=== PATIENT | female | born 1955 | race Caucasian/White ===

== ENCOUNTER 2018-07-09 06:31 | Inpatient (IN) ==
[2018-06-30 12:21] LABS: Basophils # (Auto) 0 K/mcL (0.0-0.3); Basophils % (Auto) 0.4 % (0.0-2.0); Eosinophils # (Auto) 0.3 K/mcL (0.0-0.7); Eosinophils % (Auto) 2.4 % (0.0-7.0); Granulocytes % (Auto) 50.8 % (38.0-78.0); Lymphocytes # (Auto) 4.2 K/mcL (1.5-4.8); Lymphocytes % (Auto) 38.1 % (15.5-49.0); Mean Cell Volume 86.5 fL (80.0-100.0); Mean Corpuscular HGB Conc 32.5 g/dL (31.0-36.0); Monocytes # (Auto) 0.9 K/mcL (0.1-0.9); Monocytes % (Auto) 8.3 % (1.0-12.0); Platelet Count 373 K/mcL (140-440); RBC 4.95 M/mcL (4.00-5.20); Red Cell Distribution Width 14.5 % (11.5-14.5)
[2018-06-30 12:31] LABS: Appearance,Urine CLEAR; Bacteria,Urine 0 /hpf (0); Bilirubin,Urine NEG (NEG); Color,Urine STRAW; Glucose,Urine (UA) NEGATIVE (NEG); Leukocyte Esterase,Urine NEG /uL (NEG); Mucus,Urine FEW /hpf (0); Protein,Urine NEG (NEG); Specific Gravity,Urine 1.006 (1.000-1.035); Urine Blood 0.03 mg/dL (<0.03); Urine RBC < 1 /hpf (0-1); Urine Squamous Epithelial Cell 1 /hpf (0-4); Urine Transitional Epi Cells < 1 /hpf (0-2); Urine WBC < 1 /hpf (0-4); Urobilinogen,Urine NEG (NEG)
[2018-06-30 12:39] LABS: Blood Urea Nitrogen 13 mg/dl (8-23)
[2018-06-30 13:47] LABS: Estimated Average Glucose(eAG) 111 mg/dL; Hemoglobin A1C 5.5 % HGB (4.0-6.0)
[2018-07-09] MEDS ORDERED: CELECOXIB 200 MG CAPSULE PO SCH (07:00)
[2018-07-09] MEDS ORDERED: oxyCODONE 10 MG TAB.ER.12H PO SCH (07:00)
[2018-07-09] MEDS ORDERED: PREGABALIN 75 MG CAPSULE PO SCH (07:00)
[2018-07-09] MEDS ORDERED: ceFAZolin 1 GM VIAL IV SCH (07:00)
[2018-07-09] MEDS ORDERED: PROPOFOL 200 MG/20 ML VIAL IV ONE (09:35)
[2018-07-09] MEDS ORDERED: MIDAZOLAM 5 MG/5 ML VIAL IV ONE (09:35)
[2018-07-09] MEDS ORDERED: TRANEXAMIC ACID 1,000 MG/10 ML VIAL IV ONE ×2 (09:35→11:01)
[2018-07-09] MEDS ORDERED: fentaNYL 250 MCG/5 ML VIAL IV ONE (09:35)
[2018-07-09] MEDS ORDERED: PHENYLEPHRINE 10 MG/ML VIAL IV ONE (09:35)
[2018-07-09] MEDS ORDERED: LIDOCAINE HCL/PF 100 MG/5 ML SYRINGE IV ONE (09:35)
[2018-07-09] MEDS ORDERED: DEXAMETHASONE 10 MG/ML VIAL IV ONE (09:35)
[2018-07-09] MEDS ORDERED: SUCCINYLCHOLINE 20 MG/ML ML IV ONE (09:35)
[2018-07-09] MEDS ORDERED: ONDANSETRON 4 MG/2 ML VIAL IV ONE (09:35)
[2018-07-09] MEDS ORDERED: MEPERIDINE 25 MG/ML SYRINGE IV PRN (10:32)
[2018-07-09] MEDS ORDERED: ATROPINE SULFATE 0.4 MG/ML VIAL IV PRN (10:32)
[2018-07-09] MEDS ORDERED: METHOCARBAMOL 1,000 MG/10 ML VIAL IV PRN (10:32)
[2018-07-09] MEDS ORDERED: FLUMAZENIL 0.1 MG/ML ML IV PRN (10:32)
[2018-07-09] MEDS ORDERED: NALOXONE HCL 0.4 MG/ML VIAL IV PRN (10:32)
[2018-07-09] MEDS ORDERED: METOPROLOL TARTRATE 5 MG/5 ML VIAL IV PRN (10:32)
[2018-07-09] MEDS ORDERED: ONDANSETRON 4 MG/2 ML VIAL IV PRN ×2 (10:32→11:01)
[2018-07-09] MEDS ORDERED: IPRATROPIUM/ALBUTEROL 3 ML AMPUL.NEB NEB PRN (10:32)
[2018-07-09] MEDS ORDERED: ACETAMINOPHEN 1,000 MG/100 ML BOTTLE IV ONE (10:32)
[2018-07-09] MEDS ORDERED: diphenhydrAMINE 50 MG/ML VIAL IV PRN (10:32)
[2018-07-09] MEDS ORDERED: ePHEDrine 50 MG/ML AMPUL IV PRN (10:32)
[2018-07-09] MEDS ORDERED: PROMETHAZINE 25 MG/ML VIAL IV PRN (10:32)
[2018-07-09] MEDS ORDERED: BUPIVACAINE W/EPI 0.5% 50 ML VIAL IJ ONE (10:34)
[2018-07-09] MEDS ORDERED: LACTATED RINGERS 1,000 ML IV SCH (10:45)
[2018-07-09] MEDS ORDERED: FLEETS ADULT ENEMA PR PRN (11:01)
[2018-07-09] MEDS ORDERED: BISACODYL 10 MG SUPP.RECT PR PRN (11:01)
[2018-07-09] MEDS ORDERED: BENZOCAINE/MENTHOL 1 LOZENGE PO PRN (11:01)
[2018-07-09] MEDS ORDERED: KETOROLAC 30 MG/ML VIAL IV PRN (11:01)
[2018-07-09] MEDS ORDERED: POLYETHYLENE GLYCOL 3350 17 GM PACKET PO PRN (11:01)
[2018-07-09] MEDS ORDERED: MAGNESIUM HYDROXIDE 30 ML ORAL.SUSP PO PRN (11:01)
[2018-07-09] MEDS ORDERED: HYDROmorphone 2 MG/ML VIAL IV PRN (11:01)
--- NOTE | 2018-07-09 11:01 | Brief Operative Note ---
Date of procedure: 07/09/18 Pre-op diagnosis: Right shoulder severe OA Post-op diagnosis: same Procedure: 1)Right total shoulder arthroplasty 2)Biceps tenodesis Grafts/Implants: Yes (Tornier aequalis resurfacing head 48x18, small 35 glenoid) Anesthesia: GETA Findings: severe arthritis Complications: none Surgeon: Davion Sargent Wet Washer Machine: Damian Gupta Estimated blood loss (cc): 150 Specimens Removed/Pathology: none sent Condition: stable Disposition: PACU
[2018-07-09] MEDS ORDERED: ACYCLOVIR 400 MG TABLET PO PRN (11:05)
[2018-07-09] MEDS ORDERED: DOXYCYCLINE HYCLATE 50 MG CAPSULE PO PRN (11:05)
[2018-07-09] MEDS ORDERED: ALBUTEROL SULFATE 1 PUFF INHALER INH PRN (11:05)
[2018-07-09] MEDS ORDERED: CYCLOBENZAPRINE 10 MG TABLET PO PRN (11:05)
[2018-07-09] MEDS: fentaNYL 100 MCG/2 ML VIAL IV PRN ×7 (11:30→12:18)
[2018-07-09] MEDS: HYDROmorphone 2 MG/ML VIAL IV PRN ×3 (11:47→12:19)
--- NOTE | 2018-07-09 12:57 | XRay Report ---
CLINICAL INFORMATION: Post-OP Total Shoulder COMPARISON: None. FINDINGS: Shoulder prosthesis is anatomically aligned. No osseous abnormality. Soft tissue swelling seen in the expected IMPRESSION: Negative Interpreted and Authenticated by: Mitch Grider 07/09/18
[2018-07-09] MEDS: 0.9 % SODIUM CHLORIDE 10 ML SYRINGE IV SCH ×2 (13:17→20:17)
[2018-07-09] MEDS: 0.9 % SODIUM CHLORIDE 1,000 ML IV SCH ×2 (13:17→20:17)
[2018-07-09] MEDS: HYDROcodone/APAP 10/325MG TABLET PO PRN ×2 (14:26→20:13)
--- NOTE | 2018-07-09 15:50 | Operative Note ---
DATE OF OPERATION: 07/09/2018 PREOPERATIVE DIAGNOSIS: Right shoulder severe osteoarthritis. POSTOPERATIVE DIAGNOSIS: Right shoulder severe osteoarthritis. PROCEDURE PERFORMED: 1. Right total shoulder arthroplasty placing the Tornier Aequalis Resurfacing 48 x 16 humeral component, a small 35 glenoid component. 2. Biceps tenodesis. SURGEON: Davion Sargent M.D. DELIVERY TABLE FEEDER: Nick Gupta PA-C. ANESTHESIA: General. DRAINS: None. SPECIMENS: None. COMPLICATIONS: None. BLOOD LOSS: 150 mL. POSTOPERATIVE CONDITION: Stable. INDICATIONS FOR SURGERY: This is a 63-year-old female who has had longstanding progressive worsening severe right shoulder pain. Radiographs showed severe [id number] osteoarthritis with large humeral head osteophyte. FINDINGS AT SURGERY: As above. Post implantation showed satisfactory component position and stability. PROCEDURE IN DETAIL: The patient had been seen preoperatively. Informed consent had been obtained after discussion of risks and benefits of surgery. Risks including, but not limited to, bleeding, possibly requiring transfusion; infection, possibly requiring implant removal and prolonged IV antibiotics; injury to nerves, blood vessels, and other surrounding structures; anesthetic risks; incomplete or no resolution of symptoms; stiffness; pain; weakness; dislocation; and possibility of needing further revision surgery. She understood these risks and wished to proceed. Correct operative site was marked and then patient was taken to the operating room. General anesthesia was induced. The patient was carefully positioned in the beach chair position and pressure points carefully padded. Right shoulder and upper extremity were then carefully prepped and draped in normal sterile fashion, and a time-out was performed verifying patient name, operative site, and plan. Ioban was used to cover all skin surfaces and a standard deltopectoral incision was made starting about the coracoid and extending distal laterally. The scalpel was used through skin and subcutaneous tissue and hemostasis obtained with Bovie cautery. Careful blunt dissection was taken down onto the deltopectoral interval and the cephalic vein was identified. Irrisept was irrigated and then we carefully bluntly dissected medial to the vein bluntly and then used blunt finger dissection to develop the subdeltoid space. Ramos deltoid retractor was placed and then the lateral edge of the conjoined tendon was identified and a blue handle retractor placed underneath. The biceps was identified exiting from underneath the pectoralis, and this was unroofed along its course. We then amputated this off the glenoid with a curved Torres scissors. A large curved osteotome was used then to perform a lesser tuberosity osteotomy to detach our subscapularis. We then subsequently dislocated the humeral head out anteriorly and released capsule around the inferior margin. She had very large inferior humeral head osteophyte, and this was removed with curved osteotome. Once we had debrided this down, we sized this to what appeared to be a 48 mm size. We then subluxed the humeral head posteriorly with a Fukuda retractor and began exposing the glenoid. We used a Bovie to remove the biceps stump and labrum circumferentially. We carefully released capsule around the inferior glenoid with a metal tip sucker to gently retract while we used the Bovie directly on bone. After doing capsule releases, we were able to get adequate visualization to prepare the glenoid. The center was identified and then a guide pin placed. Prior to placing this pin, however, we did determine radius of curvature at 35. We then reamed with the small reamer and then used the ZAOZAO wiper to prepare superior and inferior bone. A central peg hole was reamed and then the peripheral peg guide placed and the three peripheral peg holes drilled. The anterior inferior peg hole did come out through bone as she did have a very small glenoid. We then opened a small 35 glenoid component. DBX was placed in the flutes of the central peg. We then mixed QVPNuy quick-setting cement and irrigated with Irrisept, after a minute pulse lavaged with saline, and then injected the three peripheral peg holes with cement and pressurized with finger pressurization. We then impacted the glenoid component and held firm pressure until cement had fully hardened. We did a check for excess cement and then the humeral head was subluxed anteriorly again. We used a guide to place our pin central in the head and then used the 48 x 16 resurfacing reamer. We reamed down to cancellous bone circumferentially and then cruciate punch used to prep, and the trial was placed to verify full seating. We then opened the definitive implant. We irrigated the head with Irrisept, after a minute copiously pulse lavaged with saline, and then the implant was impacted onto the head. We checked our stability, and it subluxed posteriorly 50%. We then made two holes in the bicipital groove, and a #2 FiberWire was passed through these holes and around the lesser tuberosity in a ipbvso-uw-gylqy stitch to repair our subscapularis. We then also placed several ihlbxa-kf-whach FiberWire stitches proximal in the rotator interval. Our traction stitch was passed through her biceps and then passed through bone and tied to tenodese the biceps. The proximal stump was amputated and discarded. We did one more Irrisept irrigation, after a minute pulse lavaged, and #1 Vicryl stitch was used to run the deltopectoral interval. Final Irrisept irrigation done, after a minute final pulse lavage, and then 2-0 Monocryl for subcutaneous and milagros for skin. Xeroform and sterile dressing were applied. Arm was placed in an abductor immobilizer. The patient was awakened, extubated, and transferred to recovery in stable condition. BJB:dimas Job ID: [id number] Doc ID: [id number] Davion Sargent MD
[2018-07-09] MEDS: ceFAZolin 1 GM VIAL IV SCH (17:40)
[2018-07-09] MEDS: DOCUSATE SODIUM 100 MG CAPSULE PO SCH (20:13)
[2018-07-09] MEDS ORDERED: SENNOSIDES 1 TABLET PO SCH (21:00)
[2018-07-10] MEDS: ceFAZolin 1 GM VIAL IV SCH (00:36)
[2018-07-10] MEDS: 0.9 % SODIUM CHLORIDE 10 ML SYRINGE IV SCH ×2 (01:46→05:10)
[2018-07-10] MEDS: HYDROcodone/APAP 10/325MG TABLET PO PRN ×2 (05:26→11:59)
[2018-07-10] MEDS: 0.9 % SODIUM CHLORIDE 1,000 ML IV SCH (06:06)
[2018-07-10] MEDS ORDERED: LEVOTHYROXINE 125 MCG TABLET PO SCH (07:30)
--- NOTE | 2018-07-10 07:46 | Discharge Summary ---
Providers - Providers Patient information: Note initiated : 07/10/18 at 7:44 am Service Date, if different from initiated Date: [] Patient: Sheron Gregory 63 y/o F admitted on 07/09/18 for Right Total Shoulder Arthroplasty with Bicep. Chief Complaint: [] Discharge date: 07/10/18 Hospitalization Hospital course: Pt was admitted for a R Total shoulder arthroplasty. Pt admitted on day of procedure. Was transferred to the floor for IV pain meds, IV abx, and PT. Pt spent one night on the floor prior to discharge to home. Will f/u at [facility] in 2 weeks. Discharge diagnosis: R shoulder OA Exam - Exam Clean and dry: Yes Weight bearing status: none Ortho Discharge - TSA - Patient Instructions Diet: Regular Diet Activity: non weight bearing Total Shoulder Protocol: Leave immobilizer in place except for bathing and ROM. Abduction pillow. Continue to wear sling until seen by physician. Codman Pendulum : These exercises use momentum produced by your body to move your shoulder joint. Bend your knees and shift your weight to your front leg, then back, allowing your arm to swing in the same directions. Using the same technique, alternately shift your weight between your right and left legs, allowing your arm to swing from side to side. These exercises are also performed in counterclockwise and clockwise circular motions. Typically these exercises are performed several times per day, for a set number repetitions or minutes, such as 20 times in a row or 5 minutes at a time. Dressing Care: May shower in 2 days - Follow Up Plan Follow Up Appointments: Damian Gupta PA-C [Physician Tugboat Mate] - 07/24/18 9:20 am Disposition: Home, Self-Care Prognosis: Good Rehab Potential: Good Overall status at discharge: patient is back to baseline - Orders For Discharge Prescriptions: HYDROcodone/APAP 10/325MG [[place] 10-325Mg] 1 - 2 tab PO Q4HP PRN #75 tab PRN Reason: Pain Level 3-6 Pending Studies Resuscitation Status Full Code Diet Regular Diet Start SatJul 09 1102 Hydrocodone Bitart/Acetaminophen ([place] 10/325mg) 0 tab PO Q4HP PRN PRN Reason: PAIN LEVEL 3-6 Last Admin: 07/10/18 05:26 Dose: 1 tab Documented by: Admin: 07/09/18 20:13 Dose: 1 tab Documented by: CHRISTIEOSSERT Admin: 07/09/18 14:26 Dose: 1 tab Documented by: [facility] Docusate Sodium (Colace) 100 mg PO BID [facility] Last Admin: 07/09/18 20:13 Dose: 100 mg Documented by: CHRISTIEOSSERT Hydromorphone HCl (Dilaudid) 0 mg IV Q2HP PRN PRN Reason: PAIN LEVEL > 6 Last Admin: 07/09/18 16:39 Dose: 1 mg Documented by: [facility] Sodium Chloride (Sodium Chloride 0.9%) 1,000 mls @ 100 mls/hr IV .Q10H [facility] Last Admin: 07/10/18 06:06 Dose: Not Given Documented by: Infusion: 07/10/18 01:49 Dose: 0 mls/hr Documented by: CHRISTIEOSSERT Admin: 07/09/18 20:17 Dose: Not Given Documented by: CHRISTIEOSSERT Admin: 07/09/18 13:17 Dose: 100 mls/hr Documented by: [facility] Ketorolac Tromethamine (Toradol) 30 mg IV Q6HP PRN PRN Reason: Pain Stop: 07/11/18 11:04 Last Admin: 07/09/18 13:06 Dose: 30 mg Documented by: [facility] Levothyroxine Sodium (Synthroid) 125 mcg PO QAMAC [facility] Last Admin: 07/10/18 07:29 Dose: 125 mcg Documented by: [facility] Senna (Senokot) 2 tab PO HS [facility] Last Admin: 07/09/18 20:13 Dose: 2 tab Documented by: ALEJA Sodium Chloride (Saline Flush) 10 ml IV Q8 [facility] Last Admin: 07/10/18 05:10 Dose: Not Given Documented by: HCRISTIEOSSERT Admin: 07/10/18 01:46 Dose: 10 ml Documented by: CHRISTIEOSSERT Admin: 07/09/18 20:17 Dose: Not Given Documented by: CHRISTIEOSSERT Admin: 07/09/18 13:17 Dose: Not Given Documented by: [facility] Shift Summary 07/10/18 02:47 Shift Summary by Yadira Nixon AOx4. VSS on RA. Immoblizer in place to KANG. Dressing CDI. Denies numbness or tingling. Pulses intact. [place] x1 for minimal pain. L hand PIV SL with adequate oral intake. Voiding without issue. IS bedside. Foot pumps on. Currently resting in bed without complaint. Initialized on 07/10/18 02:47 - END OF NOTE
[2018-07-10] MEDS: DOCUSATE SODIUM 100 MG CAPSULE PO SCH (08:49)
[2018-07-10] MEDS ORDERED: LOSARTAN/HCTZ 100/25 TABLET PO SCH (09:00)
[2018-07-10] MEDS ORDERED: BECLOMETHASONE DIPROPIONATE 40MCG INHALER INH SCH (09:00)
[2018-07-10] MEDS ORDERED: LOSARTAN 50 MG TABLET PO SCH (09:00)
[2018-07-10] MEDS ORDERED: HYDROCHLOROTHIAZIDE 25 MG TABLET PO SCH (09:00)
[2018-07-10] MEDS ORDERED: MULTIVIT,THER IRON,CA,FA & MIN 1 TABLET PO SCH (09:00)
== END 2018-07-10 13:10 | disposition home or self-care (01) | DRG 483 ==
LOC: MEDSUR 06:31
PROVIDERS: ADMIT Orthopaedic Surgery; ATTEND Orthopaedic Surgery

== ENCOUNTER 2018-09-01 19:39 | Inpatient (IN) ==
[2018-09-01] MEDS ORDERED: DIPH,PERTUSS(ACELL),TET VAC/PF 0.5 ML SYRINGE IM ONE (19:49)
[2018-09-01] MEDS ORDERED: RABIES VACC, HUMAN DIPLOID/PF 2.5 UNIT VIAL IM ONE (20:19)
[2018-09-01] MEDS ORDERED: RABIES IMMUNE GLOBULIN 300 UNIT/2 ML VIAL SQ ONE (20:30)
[2018-09-01] MEDS ORDERED: cefTRIAXone 1 GM VIAL IV ONE (20:33)
[2018-09-01] MEDS ORDERED: ONDANSETRON 4 MG/2 ML VIAL IV ONE (20:33)
[2018-09-01] MEDS ORDERED: HYDROmorphone 2 MG/ML VIAL IV SCH (20:45)
[2018-09-01] MEDS ORDERED: VANCOMYCIN 1,000 MG in 0.9 % SODIUM CHLORIDE 250 ML IV ONE (21:08)
[2018-09-01] MEDS ORDERED: PIPERACILLIN SODIUM/TAZOBACTAM 3.375 GM in DEXTROSE 5% IN WATER 50 ML IV ONE (21:08)
--- NOTE | 2018-09-01 21:28 | Emergency Department Note ---
Animal Bite HPI - General Chief Complaint: Animal Bite Stated Complaint: raccon bites and scratches Time Seen by Provider: 09/01/18 19:49 Source: patient Mode of arrival: ambulatory Limitations: no limitations - History of Present Illness HPI Narrative: 63-year-old female presents with multiple lacerations to the upper and lower extremities after a raccoon attack. She states that her dog was barking at a raccoon and she went to go get him away and the raccoon bit her leg. When it bit her leg she fell to the ground and then it started just attacking her everywhere. She has multiple lacerations to the legs as well as the upper extremities which seem to be the worst occluding the fingers. Arrives completely covered in blood. Her was able to kill the raccoon and has at home and will take it to the health department first thing tomorrow morning. This did happen in [place]. We did attempt to call the health department and could not get in contact with anybody. It is unknown why the raccoon was so aggressive and would not get off of her. Unknown last tetanus. No treatments prior to arrival. She does have for throughout the lacerations with multiple avulsed nails in addition to her lacerations. - Related Data Home Medications Medication Instructions Recorded Confirmed acyclovir 400 mg tablet 400 mg PO DAILYP PRN tab 10/17/17 07/09/18 albuterol sulfate HFA 90 2 puff INHALATION Q4-6HP PRN g 10/17/17 07/09/18 mcg/actuation aerosol inhaler beclomethasone dipropionate 80 1 puff INHALATION DAILY g 10/17/17 07/09/18 mcg/actuation aerosol inhaler cyclobenzaprine 10 mg tablet 10 mg PO DAILYP PRN tab 10/17/17 07/09/18 doxycycline hyclate 50 mg tablet 50 mg PO DAILYP PRN 10/17/17 07/09/18 levothyroxine 125 mcg tablet 125 mcg PO QAMAC 10/17/17 07/09/18 losartan 100 1 tab PO QDAY 10/17/17 07/09/18 mg-hydrochlorothiazide 25 mg tablet Multivit,Ther Iron,Ca,FA & Min 1 tab PO DAILY 06/30/18 07/09/18 [Multivitamin W/Minerals] Previous Rx's Medication Instructions Recorded HYDROcodone/APAP 10/325MG [[place] 1 - 2 tab PO Q4HP PRN #75 tab 07/10/18 10-325Mg] Allergies Allergy/AdvReac Type Severity Reaction Status Date / Time No Known Drug Allergies Allergy Verified 06/30/18 10:35 Review of Systems All systems ED: reviewed and negative except as stated. Past Medical History - Past Medical History Medical history: Reports: COPD, coronary artery disease, hypertension Surgical history ED: Reports: appendectomy, tonsillectomy, other (knee) - Social History smoking status: Never smoker Alcohol use: Reports: Rarely Drug use: Reports: none Physical Exam Limitations: no limitations General appearance: alert, other (Appears in pain, covered in blood with lacerations to the upper extremities visible on her arrival.) Head: atraumatic, normocephalic, normal inspection Eye: Present: normal appearance. Absent: conjunctival injection ENT: mucous membranes moist Neck: Present: normal inspection, trachea midline. Absent: tenderness, lymphadenopathy Chest: Present: symmetric chest wall rise Respiratory: Present: normal lung sounds bilaterally. Absent: respiratory distress, rales/crackles, wheezes, accessory muscle use Cardiovascular: Present: tachycardia, normal heart sounds Extremities: Absent: normal inspection (Full range of motion intact to all extremities and sensation intact since. Please see pictures in the chart for all documentation of lacerations to the upper and lower extremities. There is no lacerations to the trunk, face, head, or neck.) Skin: Present: warm, dry. Absent: intact (Multiple lacerations to the forearms bilaterally, hands bilaterally, lower legs bilaterally. Please see pictures for documentation.) Course Course Narrative: Wounds are flushed with copious amounts of saline and chlorhexidine. tetanus updated, antibiotics started. Rabies vaccine and IGG given. Case discussed with Dr. Major, plastics. States ok to leave the open or closed if needed. minimal bleeding since her arrival. Case discussed with Dr. santos (infectious disease) who suggests wounds be left open if any way possible, start vancomycin and Zosyn, update tetanus, give Rabies vaccine (for 5 days due to high risk) and rabies IGG (inject into deepest sites and closest to head/brain). [address] Moreno, hospitalist for admission to obs and Dr. Santos to see in the morning. Vital Signs Temperature 96.6 F L 03/25/19 19:40 Pulse Rate 119 H 09/01/18 19:40 Respiratory Rate 18 09/01/18 19:40 Blood Pressure 126/83 09/01/18 19:40 Pulse Oximetry (%) 96 09/01/18 19:40 Temperature 96.6 F L 09/01/18 19:40 Pulse Rate 135 H 09/01/18 21:15 Respiratory Rate 20 09/01/18 21:15 Blood Pressure 126/83 09/01/18 19:40 Pulse Oximetry (%) 98 09/01/18 21:15 Disposition Pt seen by PASTRY DECORATOR/PA only: No Clinical Impression: Bite by animal, Raccoon bite, Multiple lacerations Disposition: Xfer As Outpt/Obs ([facility]) Condition: Fair Referrals: Sabrina Ozuna MD [Primary Care Provider] - Davion Santos MD [Physician] - Time of Disposition: 21:40
[2018-09-01] MEDS: HYDROmorphone 2 MG/ML VIAL IV PRN ×2 (21:46→22:47)
--- NOTE | 2018-09-01 22:05 | Internal Med History&Physical ---
Medical - H&P: [facility] Patient information: Note initiated : 09/01/18 at 10:01 pm Service Date, if different from initiated Date: [] Patient: Sheron Gregory a 63 y/o F admitted on for raccon bites and scratches. Chief Complaint: [] History of present illness: Ms. Gregory is a 63 year old F who presents to the ED after being attacked by raccoon. Patient states that she heard her dog barking outside in the back she went to the back and found a raccoon and the dog growling in the raccoon. She L that the dog to get in the house and the dog ran away. At that point the raccoon right after her and as she turned around run away the raccoon grabbed her leg. Patient fell down the ground and put her arms up to protect herself in the raccoon's started biting and calling her arms. Finally the raccoon to stopped and ran away. was able to kill the raccoon so we could taken to the health department. In the ED patient received tetanus shot as well as the rabies immunoglobulin. Case was discussed with Dr. Elizalde RN and Dr. Santos who recommended admitting the patient for observation started on Vanco mycin Zosyn. Patient has pain to the laceration sites and some nausea but has no other complaints otherwise. Review of Systems: Pertinent positives as above. Denies headache/fever/chills/vomiting/chest or abdominal pain/cough/dyspnea/diarrhea. Remaining 10 point review of system review negative Medical - H&P: PMH Medical history: Medical History (Last Reviewed 10/22/17 @ 11:01 by Harpal Aaron PA-C) Thyroid disease (Chronic) Joint pain (Chronic) Hyperlipidemia (Chronic) Hypertension, essential (Chronic) COPD (chronic obstructive pulmonary disease) (Chronic) Acid reflux (Chronic) Past Surgical History (Last Reviewed 10/22/17 @ 11:01 by Harpal Aaron PA-C) H/O colonoscopy (Chronic) Right shoulder arthroplasty, tonsillectomy, Appendectomy Family History (Last Reviewed 10/22/17 @ 11:01 by Harpal Aaron PA-C) Father Cancer Brother Heart attack Social History (Last Updated 10/22/17 @ 11:03 by Harpal Aaron PA-C) Patient exposed to secondhand smoke Rare alcohol Lives with family Medical - H&P: Meds Home Medications Medication Instructions Recorded Confirmed Type acyclovir 400 mg tablet 400 mg PO DAILYP PRN tab 10/17/17 07/09/18 History albuterol sulfate HFA 90 2 puff INHALATION Q4-6HP PRN g 10/17/17 07/09/18 History mcg/actuation aerosol inhaler beclomethasone dipropionate 80 1 puff INHALATION DAILY g 10/17/17 07/09/18 History mcg/actuation aerosol inhaler cyclobenzaprine 10 mg tablet 10 mg PO DAILYP PRN tab 10/17/17 07/09/18 History doxycycline hyclate 50 mg tablet 50 mg PO DAILYP PRN 10/17/17 07/09/18 History levothyroxine 125 mcg tablet 125 mcg PO QAMAC 10/17/17 07/09/18 History losartan 100 1 tab PO QDAY 10/17/17 07/09/18 History mg-hydrochlorothiazide 25 mg tablet Multivit,Ther Iron,Ca,FA & Min 1 tab PO DAILY 06/30/18 07/09/18 History [Multivitamin W/Minerals] HYDROcodone/APAP 10/325MG [[place] 1 - 2 tab PO Q4HP PRN #75 tab 07/10/18 Rx 10-325Mg] Allergies Allergy/AdvReac Type Severity Reaction Status Date / Time No Known Drug Allergies Allergy Verified 06/30/18 10:35 Medical - H&P: Exam - Constitutional Vitals: Temp Pulse Resp BP Pulse Ox 96.6 F L 97 H 20 91/66 95 09/01/18 19:40 09/01/18 21:32 09/01/18 21:15 09/01/18 21:32 09/01/18 21:32 Exam: General: Alert, Awake, No acute Distress Eyes/N/T: EOMI, PEERL, Head/Neck: neck supple, normocephalic atraumatic CV: RRR, No murmurs, normal s1/s2 Pulm: Clear b/l, no wheezing/rhonchi/rales Abd: soft, nontender, +BS x4 Ext: Multiple lacerations, 20+ primarily to the upper extremities but also to the lower extremities Neuro: Alert, no focal deficits, moves all extremities, CN 2-12 grossly intact, symmetrical strength b/l upper/lower, sensations intact b/l upper/lower Skin: warm/dry Medical - H&P: A/P - Narrative A/P Narrative: A: *Lacerations, Multiple to b/l UE's & LE's: 2/2 to attack by raccoon *COPD: *HTN: *Hypothyroidism: * P: -Wound care -Vanco/Zosyn -ID consult -Dr. Major consulted -Rabies immunoglobulin and tetanus given -Rabies vaccine - -ppx: SCD
[2018-09-01] MEDS: RABIES IMMUNE GLOBULIN 300 UNIT/2 ML VIAL SQ ONE (22:49)
[2018-09-01] MEDS ORDERED: ACETAMINOPHEN 325 MG TABLET PO PRN (23:10)
[2018-09-01] MEDS: 0.9 % SODIUM CHLORIDE 1,000 ML IV SCH (23:20)
[2018-09-01] MEDS ORDERED: HYDROcodone/APAP 5/325MG TABLET PO ONE (23:52)
[2018-09-01] MEDS: HYDROcodone/APAP 5/325MG TABLET PO PRN (23:55)
[2018-09-02] MEDS: PIPERACILLIN SODIUM/TAZOBACTAM 3.375 GM in DEXTROSE 5% IN WATER 50 ML IV SCH ×5 (01:00→18:55)
[2018-09-02] MEDS ORDERED: HYDROcodone/APAP 5/325MG TABLET PO ONE (03:33)
[2018-09-02] MEDS: 0.9 % SODIUM CHLORIDE 1,000 ML IV SCH (03:38)
[2018-09-02] MEDS: 0.9 % SODIUM CHLORIDE 10 ML SYRINGE IV SCH ×3 (06:07→21:01)
[2018-09-02] MEDS ORDERED: VANCOMYCIN PER PHARMACY IV SCH (06:30)
[2018-09-02] MEDS ORDERED: CYCLOBENZAPRINE 10 MG TABLET PO PRN (07:04)
[2018-09-02] MEDS ORDERED: ALBUTER INH PRN (07:04)
[2018-09-02] MEDS ORDERED: ACYCLOVIR 400 MG TABLET PO PRN (07:04)
--- NOTE | 2018-09-02 07:07 | Internal Med Progress Note ---
Medical - PN: Subj Patient information: Note initiated : 09/02/18 at 7:05 am Service Date, if different from initiated Date: [] Patient: Sheron Gregory a 63 y/o F admitted on 09/01/18 for raccon bites and scratches. Chief Complaint: [] Interval history: Ms. Gregory is a 63 year old F who presents to the ED after being attacked by raccoon. Patient states that she heard her dog barking outside in the back she went to the back and found a raccoon and the dog growling in the raccoon. She L that the dog to get in the house and the dog ran away. At that point the raccoon right after her and as she turned around run away the raccoon grabbed her leg. Patient fell down the ground and put her arms up to protect herself in the raccoon's started biting and calling her arms. Finally the raccoon to stopped and ran away. was able to kill the raccoon so we could taken to the health department. In the ED patient received tetanus shot as well as the rabies immunoglobulin. Case was discussed with Dr. Boyds RN and Dr. Santos who recommended admitting the patient for observation started on Vanco mycin Zosyn. Patient has pain to the laceration sites and some nausea but has no other complaints otherwise. 09/02 Slept okay when pain was controlled. Has some occasional nausea. Dressings intact. No headache fever chills vomiting chest pain stomach pain. Friend family and friends present in the room. Review of Systems: denies headache/fever/chills/vomiting/chest or abdominal pain/cough/dyspnea/di arrhea. Otherwise see above. - Constitutional Vitals: Vital Signs Temp Pulse Resp BP Pulse Ox 97.5 F 107 H 20 100/62 95 09/02/18 03:38 09/02/18 03:38 09/02/18 03:38 09/02/18 03:38 09/02/18 03:38 Period Temp Pulse Resp BP Sys/Chandra Pulse Ox Last 24 Hr 96.6 F-97.5 F 90-135 18-20 91-126/62-83 94-98 Intake and Output 09/01/18 09/02/18 09/02/18 21:59 05:59 13:59 Intake Total 230 Balance 230 Weight 97.522 kg 97.522 kg Intake & Output: Intake & Output 09/01/18 09/02/18 09/02/18 21:59 05:59 13:59 Intake Total 230 Balance 230 Weight 97.522 kg 97.522 kg Intake: IV 50 Zosyn 3.375 gm In Dextrose 5% 50 in Water 50 ml @ 100 mls/hr IV ONCE ONE Rx#:[id number] Oral 180 Other: # Voids 1 Exam: General: Alert, Awake, No acute Distress Eyes/N/T: EOMI, Head/Neck: neck supple, CV: RRR, No murmurs, Pulm: Clear b/l, no wheezing/rhonchi/rales Abd: soft, nontender, +BS x4 Ext: Multiple lacerations, 20+ primarily to the upper extremities but also to the lower extremities, dressings intact Neuro: Alert, no focal deficits, moves all extremities, Skin: warm/dry Medical - PN: Obj Da - Labs CBC & Chem 7: 09/02/18 04:56 09/02/18 04:56 Meds: Medications Acetaminophen (Tylenol) 650 mg PO Q6HP PRN PRN Reason: PAIN/FEVER > 101 Hydrocodone Bitart/Acetaminophen ([place] 5/325mg) 1 - 2 tab PO Q4HP PRN PRN Reason: PAIN LEVEL 3-6 Last Admin: 09/01/18 23:55 Dose: 2 tab Documented by: Sodium Chloride (Sodium Chloride 0.9%) 1,000 mls @ 100 mls/hr IV .Q10H [place] Stop: 09/02/18 09:09 Last Admin: 09/02/18 03:38 Dose: 100 mls/hr Documented by: Piperacillin Sod/Tazobactam (Sod 3.375 gm/ Dextrose) 50 mls @ 100 mls/hr IV Q6H [place]; Protocol Last Admin: 09/02/18 06:08 Dose: Not Given Documented by: Vancomycin HCl 1,000 mg/ (Sodium Chloride) 250 mls @ 250 mls/hr IV Q12H [place] Morphine Sulfate (Morphine) 2 mg IV Q4HP PRN PRN Reason: PAIN LEVEL > 6 Last Admin: 09/02/18 01:24 Dose: 2 mg Documented by: Sodium Chloride (Saline Flush) 10 ml IV Q8 [place] Last Admin: 09/02/18 06:07 Dose: Not Given Documented by: Vancomycin HCl (Vancomycin Per Pharmacy) 1 order IV UD [place]; Protocol Medical - PN: A/P - Time Spent With Patient Total time spent is greater than 50% in coordination of care (as documented) at patient's floor/unit and/or counseling patient: - Narrative A/P Narrative: A: *Lacerations, Multiple to b/l UE's & LE's: 2/2 to attack by raccoon *COPD: *HTN: *Hypothyroidism: *Hyponatremia: P: -Wound care -Vanco/Zosyn -ID consult -Dr. Major consulted -Rabies immunoglobulin and tetanus given -Rabies vaccine -NS IVF -ppx: [facility] Medical - PN: Qual - VTE Deep Vein Thrombosis/Pulmonary Embolism Present on Admission: No
[2018-09-02 07:25] LABS: ALT/SGPT 22 U/l (0-40); Albumin 3.6 gm/dL (3.2-5.2); Albumin/Globulin Ratio 1.6 (1.0-2.3); Alkaline Phosphatase 81 U/L (39-117); Bilirubin,Direct < 0.2 mg/dL (0.0-0.3); Blood Urea Nitrogen 16 mg/dl (8-23); Gamma Glutamyl Transpeptidase 31 U/L (5-36); Uric Acid 6.6 mg/dL (2.5-8.0)
[2018-09-02] MEDS ORDERED: LOSARTAN/HCTZ 100/25 TABLET PO SCH (09:00)
[2018-09-02] MEDS: HYDROcodone/APAP 5/325MG TABLET PO PRN ×4 (09:08→21:03)
[2018-09-02] MEDS: VANCOMYCIN 1,000 MG in 0.9 % SODIUM CHLORIDE 250 ML IV SCH ×2 (09:10→21:01)
[2018-09-02] MEDS: BECLOMETHASONE DIPROPIONATE INH SCH (09:11)
[2018-09-02 09:22] LABS: Basophils # (Auto) 0 K/mcL (0.0-0.3); Basophils % (Auto) 0.2 % (0.0-2.0); Eosinophils # (Auto) 0 K/mcL (0.0-0.7); Eosinophils % (Auto) 0.1 % (0.0-7.0); Granulocytes % (Auto) 83.2 % (38.0-78.0); Lymphocytes % (Auto) 11.4 % (15.5-49.0); Mean Cell Volume 87.6 fL (80.0-100.0); Mean Corpuscular HGB Conc 32.9 g/dL (31.0-36.0); Monocytes # (Auto) 1.4 K/mcL (0.1-0.9); Monocytes % (Auto) 5.1 % (1.0-12.0); Platelet Count 387 K/mcL (140-440); RBC 3.64 M/mcL (4.00-5.20); Red Cell Distribution Width 15.4 % (11.5-14.5)
[2018-09-02] MEDS: LEVOTHYROXINE 125 MCG TABLET PO SCH (11:51)
[2018-09-02] MEDS: HYDROCHLOROTHIAZIDE 25 MG TABLET PO SCH (11:51)
[2018-09-02] MEDS: LOSARTAN 50 MG TABLET PO SCH (11:51)
--- NOTE | 2018-09-02 15:58 | Infectious Disease Consult ---
History of Present Illness Patient information: Note initiated : 09/02/18 at 3:49 pm Service Date, if different from initiated Date: [] Patient: Sheron Gregory 63 y/o F admitted on 09/02/18 for raccon bites and scratches. Chief Complaint: [] Consult date: 09/02/18 Requesting Physician: Camilo Moreno Reason for Consult: Multiple bite wounds from a raccoon bite Chief complaint: I was attacked by a raccoon History of present illness: 63 year old lady was admitted through ED yesterday night after presenting there wiith multiple bite wounds. Pt was unprovokedly attacked and bitten by a raccoon yesterday evening. She had bites over her both hands, forearms, both legs with some deep and some superficial. Her rescued her and was able to kill the raccoon so that it could be taken to the health department. In the ED, pt had HR 119, BP 126/83, RR 18, O2 sats 96%. She recieved first aid with washing all the wounds with soap and water. I was called late last evening about the pt and shared instructions about using a viricidal agent to clean all the wounds thoroughly, avoiding suturing the wound unless necessary for hemostasis and if so, do loosely. Pt was given HRIG in and around the wounds that were deepest and close to brain. She was given 1st dose of Rabies post- exposure prophylaxis and started on IV Vanc and IV Zosyn. Pt has been afebrile since admission. At time of visit today, she denied any fever, chills, n/v, diarrhea. Endorsed pain in multiple wounds of upper and lower extremities. Discussed the risks of bites, likelihood of rabies, infection; and possible ways forward [antibiotics, wound care, plastic surgery]. Review of Systems All systems PM: reviewed and no additional remarkable complaints except as stated Past History Past medical history: Hx of dog bite few years ago. As dog was a pet, and vaccinated for rabies, pt didnot recieve any Rabies shots Past surgical history: Rt shoulder replacement Past family history: no Hx of bites by raccoon in family Medications and Allergies Home Medications Medication Instructions Recorded Confirmed Type acyclovir 400 mg tablet 400 mg PO DAILYP PRN tab 10/17/17 09/01/18 History albuterol sulfate HFA 90 2 puff INHALATION Q4-6HP PRN g 10/17/17 09/01/18 History mcg/actuation aerosol inhaler beclomethasone dipropionate 80 1 puff INHALATION DAILY g 10/17/17 09/01/18 History mcg/actuation aerosol inhaler cyclobenzaprine 10 mg tablet 10 mg PO DAILYP PRN tab 10/17/17 09/01/18 History doxycycline hyclate 50 mg tablet 50 mg PO DAILYP PRN 10/17/17 09/01/18 History levothyroxine 125 mcg tablet 125 mcg PO QAMAC 10/17/17 09/01/18 History losartan 100 1 tab PO QDAY 10/17/17 09/01/18 History mg-hydrochlorothiazide 25 mg tablet Multivit,Ther Iron,Ca,FA & Min 1 tab PO DAILY 06/30/18 09/01/18 History [Multivitamin W/Minerals] HYDROcodone/APAP 10/325MG [[place] 1 - 2 tab PO Q4HP PRN #75 tab 07/10/18 09/01/18 Rx 10-325Mg] Allergies Allergy/AdvReac Type Severity Reaction Status Date / Time No Known Drug Allergies Allergy Verified 06/30/18 10:35 Physical Examination Vital signs: Temp Pulse Resp BP Pulse Ox 36.2 C 109 H 20 131/75 95 09/02/18 08:00 09/02/18 08:00 09/02/18 08:00 09/02/18 08:00 09/02/18 08:00 General appearance: no acute distress Eyes pulmonary: nonicteric ENT: other (no thrush) Auscultation: bilateral: clear Cardiovascular: regular rate and rhythm Gastrointestinal: normoactive bowel sounds, soft, non-tender Integumentary: other (multiple bite wounds on both forearms, hands, legs ranging from puncture wounds in skin to deeper wounds with inv of subcutaneous tissue and fat. Express blood on pressure.No visible bone or tendon. No pus drainage.) Extremities: other (swelling of hands, forearm, legs. No discoloration to suggest necrosis) Results - Laboratory Findings CBC and BMP: 09/03/18 05:08 09/03/18 05:08 Abnormal lab findings: Abnormal Labs 09/02/18 09/02/18 04:56 08:15 WBC 26.5 H RBC 3.64 L Hgb 10.5 L Hct 31.9 L RDW 15.4 H Gran % 83.2 H Lymph % (Auto) 11.4 L Gran # 22.0 H [place] # (Auto) 1.4 H Sodium 130 L Carbon Dioxide 16 L Anion Gap 17.0 H Glucose 107 H Calcium 8.2 L Phosphorus 4.8 H Assessment and Plan - Narrative A/P Narrative: A: 1. Multiple bite wounds of upper and lower extremities from an unprovoked raccoon bite on 09/02/18 - I am concerned about multiple bite wounds as follows: a. multiple bite wounds (about 25) make it difficult for administration of HRIG in each single wound as the amount calculated after weight based dosing was 10 ml. In this case it was given in the wounds which were closer to head and deeper (stage 3 per WHO) b. many of the wounds in hands and fingers are close to tendon sheaths and raise concerns for introduction of bacteria into muscle and bones, with possibility of tenosynovitis and osteomyelitis 2. No concerns for sepsis at this time Recommendations: - Continue IV Vancomycin per pharmacy assisted dosing - Continue IV Zosyn 3.375 gm q6 hrs - send 2 sets of blood Cx - Discussed with Dr. Major (plastic surgery) about selective debridement of wounds, and exploration of those with deeper involvement and those involving fingers and hand - Continue rabies post-exposure prophylaxis on following dates: day 3 09/04/18 day 7 09/08/18 day 14 09/15/18 day 28 09/29/18 - will pursue imaging of hands, forearm and legs to r/o deeper infections. A CT of hands, forearms and legs would be appropriate. - will switch to highly bioavailable oral therapy at discharge. Pt will need rat exterminator antibiotics will follow Davion Santos MD Infectious diseases
[2018-09-02] MEDS: BACITRACIN TOPICAL OINT 15 GM TUBE TOPICAL SCH ×2 (16:06→21:01)
--- NOTE | 2018-09-02 16:11 | General Surgery Consult Note ---
History of Present Illness Patient information: Note initiated : 09/02/18 at 4:06 pm Service Date, if different from initiated Date: [] Patient: Sheron Gregory 63 y/o F admitted on 09/02/18 for raccon bites and scratches. Chief Complaint: [] Consult date: 09/02/18 Requesting physician: Camilo Moreno (wound management) History of present illness: I saw this lady along with Dr. Santos and Randee RN, inpatient wound care nurse, in room 109 at [facility]. 63 years female. Admitted via emergency room. Patient gives history of being bitten by a cone over both the upper extremities and lower legs in an unprovoked attack. The animal was scheduled by her and taken to healthcare Department. Patient was treated in the ER, the wounds were cleansed, tetanus toxoid and immune globulin was given. She is admitted to the hospital for further ongoing management. Wound care was called to assist with the evaluation and treatment. Medications and Allergies Home Medications Medication Instructions Recorded Confirmed Type acyclovir 400 mg tablet 400 mg PO DAILYP PRN tab 10/17/17 09/08/18 History albuterol sulfate HFA 90 2 puff INHALATION Q4-6HP PRN g 10/17/17 09/08/18 History mcg/actuation aerosol inhaler beclomethasone dipropionate 80 1 puff INHALATION DAILY g 10/17/17 09/08/18 History mcg/actuation aerosol inhaler cyclobenzaprine 10 mg tablet 10 mg PO DAILYP PRN tab 10/17/17 09/08/18 History doxycycline hyclate 50 mg tablet 50 mg PO DAILYP PRN 10/17/17 09/08/18 History levothyroxine 125 mcg tablet 125 mcg PO QAMAC 10/17/17 09/08/18 History losartan 100 1 tab PO QDAY 10/17/17 09/08/18 History mg-hydrochlorothiazide 25 mg tablet RX: Multivit,Ther Iron,Ca,FA & Min 1 tab PO DAILY 06/30/18 09/08/18 History [Multivitamin W/Minerals] RX: Amoxicillin/Potassium Clav 875 mg PO BIDCC #26 tab 09/04/18 09/08/18 Rx [Augmentin] RX: Bacitracin Topical Oint 1 dose TOPICAL UD PRN #1 tube 09/04/18 09/08/18 Rx RX: Doxycycline Hyclate 100 mg PO BID #26 tablet.orl 09/04/18 09/08/18 Rx RX: HYDROcodone/APAP 5/325MG 1 - 2 tab PO Q4HP PRN #40 tab 09/04/18 09/08/18 Rx [[place] 5-325Mg] Allergies Allergy/AdvReac Type Severity Reaction Status Date / Time No Known Drug Allergies Allergy Verified 09/08/18 16:13 Exam Temp Pulse Resp BP Pulse Ox 98.2 F 86 16 131/75 98 09/02/18 12:00 09/02/18 12:00 09/02/18 12:00 09/02/18 08:00 09/02/18 12:00 - General physical appearance well developed, well nourished, no distress - Eyes PERRL, normal ocular movement - ENT normal pinna, normal mucosa, no congestion - Head Head exam IM: Present: atraumatic, normal inspection, normocephalic - Neck no masses, no bruits, trachea midline, no venous distension - Cardiovascular Cardiovascular exam IM: Present: normal rate and rhythm - Respiratory normal expansion, normal respiratory effort, clear to auscultation - Abdomen Abdomen: Present: soft, non tender, bowel sounds - Integumentary Present: other (multiple scattered wounds extending through the skin and subcutaneous tissue of both forearms and legs. These are thoroughly washed and currently there is no purulence, odor, crepitation or drainage.) - Neurologic Present: other (No focal neurologic deficits. Patient denies any dysphagia, hydro-phobia or photophobia.) - Musculoskeletal Present: normal gait, normal posture - Psychiatric Present: oriented to time, oriented to person, oriented to place, speech is normal, memory intact, other (situational anxiety.) Results - Labs 09/04/18 05:05 09/04/18 05:05 Abnormal lab results 09/02/18 09/02/18 Range/Units 04:56 08:15 WBC 26.5 H (4.5-11.0) K/mcL RBC 3.64 L (4.00-5.20) M/mcL Hgb 10.5 L (12.0-15.0) g/dL Hct 31.9 L (36.0-48.0) % RDW 15.4 H (11.5-14.5) % Gran % 83.2 H (38.0-78.0) % Lymph % (Auto) 11.4 L (15.5-49.0) % Gran # 22.0 H (1.8-8.0) K/mcL [place] # (Auto) 1.4 H (0.1-0.9) K/mcL Sodium 130 L (133-145) mmol/L Carbon Dioxide 16 L (22-30) mmol/L Anion Gap 17.0 H (8-16) Glucose 107 H (70-105) mg/dL Calcium 8.2 L (8.6-10.4) mg/dl Phosphorus 4.8 H (2.7-4.5) mg/dL Diabetes panel 09/02/18 Range/Units 04:56 Sodium 130 L (133-145) mmol/L Potassium 4.5 (3.3-5.1) mmol/L Chloride 97 (96-108) mmol/L Carbon Dioxide 16 L (22-30) mmol/L BUN 16 (8-23) mg/dl Creatinine 0.7 (0.6-1.1) mg/dl Glucose 107 H (70-105) mg/dL Calcium 8.2 L (8.6-10.4) mg/dl AST 22 (0-37) U/l ALT 22 (0-40) U/l Alkaline Phosphatase 81 (39-117) U/L Total Protein 5.9 (5.9-8.4) gm/dL Albumin 3.6 (3.2-5.2) gm/dL Triglycerides 62 (<150) mg/dl Calcium panel 09/02/18 Range/Units 04:56 Calcium 8.2 L (8.6-10.4) mg/dl Phosphorus 4.8 H (2.7-4.5) mg/dL Albumin 3.6 (3.2-5.2) gm/dL Pituitary panel 09/02/18 Range/Units 04:56 Sodium 130 L (133-145) mmol/L Potassium 4.5 (3.3-5.1) mmol/L Chloride 97 (96-108) mmol/L Carbon Dioxide 16 L (22-30) mmol/L BUN 16 (8-23) mg/dl Creatinine 0.7 (0.6-1.1) mg/dl Glucose 107 H (70-105) mg/dL Calcium 8.2 L (8.6-10.4) mg/dl Adrenal panel 09/02/18 Range/Units 04:56 Sodium 130 L (133-145) mmol/L Potassium 4.5 (3.3-5.1) mmol/L Chloride 97 (96-108) mmol/L Carbon Dioxide 16 L (22-30) mmol/L BUN 16 (8-23) mg/dl Creatinine 0.7 (0.6-1.1) mg/dl Glucose 107 H (70-105) mg/dL Calcium 8.2 L (8.6-10.4) mg/dl Total Bilirubin 0.4 (0.0-1.0) mg/dL AST 22 (0-37) U/l ALT 22 (0-40) U/l Alkaline Phosphatase 81 (39-117) U/L Total Protein 5.9 (5.9-8.4) gm/dL Albumin 3.6 (3.2-5.2) gm/dL All other labs normal. Assessment and Plan (1) Raccoon bite Assessment: Patient seen with Dr. Santos and Randee child care worker nurse. Plan: Wound care and Treatment Plan discussed with nursing staff and patient at length. F/U at [facility] in ONE week after discharge. Status: Acute Priority: Medium (2) Multiple lacerations Same as above. Status: Acute Priority: Medium
[2018-09-03] MEDS: HYDROcodone/APAP 5/325MG TABLET PO PRN ×7 (00:17→23:59)
[2018-09-03] MEDS: PIPERACILLIN SODIUM/TAZOBACTAM 3.375 GM in DEXTROSE 5% IN WATER 50 ML IV SCH ×5 (00:17→23:59)
[2018-09-03] MEDS ORDERED: BACITRACIN TOPICAL OINT 15 GM TUBE TOPICAL PRN (02:26)
--- NOTE | 2018-09-03 05:47 | XRay Report ---
CLINICAL INFORMATION: Animal bites TECHNIQUE: PA, oblique, lateral left hand COMPARISON: None. FINDINGS: No left hand fracture. No radiopaque foreign body. No soft tissue gas. There is degenerative joint disease involving the proximal and distal interphalangeal joints. No acute posttraumatic abnormality. IMPRESSION: 1. Degenerative joint disease 2. No fracture. No soft tissue gas or radiopaque foreign body Interpreted and Authenticated by: Mitch Dutta 09/03/18
[2018-09-03] MEDS: 0.9 % SODIUM CHLORIDE 10 ML SYRINGE IV SCH ×3 (05:50→20:10)
[2018-09-03] MEDS: LEVOTHYROXINE 125 MCG TABLET PO SCH (06:55)
[2018-09-03 07:03] LABS: Basophils # (Auto) 0.1 K/mcL (0.0-0.3); Basophils % (Auto) 0.3 % (0.0-2.0); Eosinophils # (Auto) 0.2 K/mcL (0.0-0.7); Eosinophils % (Auto) 0.9 % (0.0-7.0); Granulocytes % (Auto) 66.2 % (38.0-78.0); Lymphocytes # (Auto) 4.3 K/mcL (1.5-4.8); Mean Cell Volume 87.5 fL (80.0-100.0); Mean Corpuscular HGB Conc 32.5 g/dL (31.0-36.0); Monocytes # (Auto) 1.6 K/mcL (0.1-0.9); Monocytes % (Auto) 8.6 % (1.0-12.0); Platelet Count 272 K/mcL (140-440); RBC 3.06 M/mcL (4.00-5.20); Red Cell Distribution Width 15.6 % (11.5-14.5)
[2018-09-03 07:19] LABS: ALT/SGPT 19 U/l (0-40); Albumin 3.1 gm/dL (3.2-5.2); Albumin/Globulin Ratio 1.3 (1.0-2.3); Alkaline Phosphatase 71 U/L (39-117); Bilirubin,Direct < 0.2 mg/dL (0.0-0.3); Blood Urea Nitrogen 11 mg/dl (8-23); Gamma Glutamyl Transpeptidase 30 U/L (5-36); Uric Acid 3.9 mg/dL (2.5-8.0)
--- NOTE | 2018-09-03 07:49 | Consultation ---
DATE OF CONSULTATION: 09/02/2018 REASON FOR CONSULTATION: Multiple laceration on both upper extremities and both legs after a raccoon attacked her and bit her. HISTORY OF PRESENT ILLNESS: Mrs. Gregory is a 63-year-old relatively healthy female, who was attacked by a raccoon at her home last night and her dogs were barking and she called the dogs away and went out to investigate, and raccoon became angry and aggressive, attacked her, she ran, it dragged her down and bit her on both of her legs and both her hands and arms when she tried to protect her face. The raccoon was scared off and eventually killed by her , but she was brought into the emergency room last evening. She had multiple lacerations. There was some uncertainty as to whether or not it should be left open or closed. I was asked to see her today in consultation. MEDICATIONS: The patient takes acyclovir, albuterol, betamethasone inhaler, cyclobenzaprine, doxycycline, levothyroxine, losartan, multivitamins, and hydrocodone as she has had recent surgery. ALLERGIES: SHE HAS NO KNOWN DRUG ALLERGIES. PAST MEDICAL HISTORY: The patient has a history of hypothyroidism, hypertension, acid reflux. PAST SURGICAL HISTORY: She just had a surgery on her right shoulder a couple of months ago. She is still having some weakness and problems with it. She had a history of a tonsillectomy and appendectomy. SOCIAL HISTORY: She does not smoke and never has. Alcohol intake is rare. [place] is [place] She lists her employer as [employer] in [place]. FAMILY HISTORY AND REVIEW OF SYSTEMS: Not obtained. PHYSICAL EXAMINATION: GENERAL: The patient is awake, alert, tired, and appropriate. She is in obvious discomfort as she has multiple wounds, but she is cooperative. VITAL SIGNS: She is currently afebrile. Temperature is 98.1, her blood pressure is 108/68, heart rate is 80 and regular, respirations are 16. HEAD AND NECK. Demonstrates pleasant symmetric facial features with no significant lesions of concern. There are no open wounds or lacerations. She has good facial symmetry. NECK: Supple. LUNGS: Clear bilaterally without wheezes. HEART: Demonstrates a regular rhythm without murmur. EXTREMITIES AND NEUROLOGIC: Exam demonstrated multiple cuts, abrasions, some deep, some superficial. Some of the deeper wounds are on the left hypothenar palm measuring about 4 cm. Multiple parallel deeper lacerations on the left upper inner forearm and arm. She has multiple wounds on the outside of the upper arm, but these are more of a puncture wound in nature. She has some small lacerations on her fingers, and the long finger nail is hanging from the soft tissue that has been partially avulsed. That part was remarkably painful and tender. When I have her flex and extend her fingers, she is able to flex and extend all the digits on the right hand. She has no pain with passive or resisted extension and flexion. On the left hand, however, she does have some multiple deeper lacerations, but all of them are fairly short on the left index finger; however, she has pain with attempted motion, both flexion and extension. There is laceration directly over the PIP. Capillary refill is excellent. Sensation is normal in all digits. In looking at her lower extremities, on her left posterior calf, she has somewhat deeper puncture narciso, but they are not deep lacerations. On the right lower extremity on the dorsal aspect of the distal leg and foot, there is a jagged laceration measuring about 3 cm in total and one on the posterior calf measuring about 2.5 cm in total. She is able to wiggle her toes and move her ankles. Sensation in her foot is essentially normal. IMPRESSION: A 63-year-old female with a fairly complex problem with multiple both deep and superficial lacerations, on both upper extremities and both lower extremities. She also has possible tendon injury, possible early tenosynovitis on the left index finger. She was admitted for IV antibiotics, local wound care. I had a long discussion with the patient and the family regarding treatment. I told them that given these bites, there is always an increased risk of getting a wound infection. If we locally anesthetize the deeper wounds, scrub them out with a surgical scrub and Betadine, fastened the edges as best as possible and reapproximate them, there is a slight increased risk of wound infection; but even if it is a 20% chance of wound infection, there is an 80%, perhaps 90%, chance that the wounds will heal. Closing the wounds will expedite the healing and reduce the scarring and reduce long-term complications with those wounds. The patient and family were given chance to ask questions and they agree with the plan. I ended up going to my office for a few hours and when I came back, we went ahead and cleaned up and closed the wounds. The wounds on upper arms and forearms were addressed first. The left index finger was also addressed and all these areas were anesthetized first with lidocaine with bicarbonate and then lidocaine with epinephrine in a 1:200,000 dilution. These wounds were all thoroughly scrubbed, prepped, and draped out sterilely. On the left arm, about 6 cm of wounds were closed with interrupted and mattress sutures of 4-0 nylon. On the right palm, a 4 cm laceration and on the right upper arm, a total of about 14 cm of lacerations were closed with horizontal mattress and simple sutures of 4-0 nylon as well. The left index finger was then opened. The wound was extended proximally and distally, and the wounds were carefully inspected. The extensor tendon was visualized directly and demonstrated evidence of dorsal injury, but it did not appear to be through and through. I clearly did not transect the tendon. I looked carefully and I did not see any evidence of penetration into the PIP joint itself. This wound was nonetheless irrigated out with Betadine irrigation, scrubbed, and then loosely closed with interrupted sutures of 4-0 nylon. Finally, additional local anesthesia was used to block the tip of the long finger and the right long finger nail which was partially avulsed off, was removed, and there appeared to be some avulsion on just the part of the nail plate, but there was no evidence of bony exposure or bone involvement. The proximal nail under the nail fold was intact, so that nail should continue to grow normally. Having been content with the closure and the treatment of all the upper extremity wounds, the wounds were dressed with bacitracin, 4 x 4's, and Kerlix. The lower extremity wounds were then addressed both on the left posterior capsule, they were more like punctures and so no sutures were necessary. The other 2 areas on the dorsum of the foot and on the posterior calf were anesthetized, scrubbed, fashioned, and trimmed all obvious nonviable and questionable viable skin, and these defects were closed with horizontal mattress, half buried dermal, and simple sutures of 4-0 nylon. Again, the posterior calf on the right side was about a 2.5 cm closure and the right foot was about a 3 cm closure. These wounds were all washed free of debris and dressed as the other wounds were. The patient tolerated the procedure well, and there were no complications. I told her that again this increase risk that she could get infections, but if the wounds heal uneventfully, she will have better scarring of left hand in long-term unless problems with those areas. The most area of concern is that of a left index finger. If she continues to have worsening pain and swelling, a formal exploration and irrigation of the joint may be necessary. I will plan to check her again tomorrow. Discussed my findings with Dr. Moreno and patient tolerated the procedure well. JOSÉ MANUEL:sammy Job ID: [id number] Doc ID: [id number] Jason Moreno DO
--- NOTE | 2018-09-03 08:11 | Internal Med Progress Note ---
Medical - PN: Subj Patient information: Note initiated : 09/03/18 at 8:08 am Service Date, if different from initiated Date: [] Patient: Sheron Gregory a 63 y/o F admitted on 09/02/18 for raccon bites and scratches. Chief Complaint: [] Interval history: Ms. Gregory is a 63 year old F who presents to the ED after being attacked by raccoon. Patient states that she heard her dog barking outside in the back she went to the back and found a raccoon and the dog growling in the raccoon. She L that the dog to get in the house and the dog ran away. At that point the raccoon right after her and as she turned around run away the raccoon grabbed her leg. Patient fell down the ground and put her arms up to protect herself in the raccoon's started biting and calling her arms. Finally the raccoon to stopped and ran away. was able to kill the raccoon so we could taken to the health department. In the ED patient received tetanus shot as well as the rabies immunoglobulin. Case was discussed with Dr. Boyds RN and Dr. Santos who recommended admitting the patient for observation started on Vanco mycin Zosyn. Patient has pain to the laceration sites and some nausea but has no other complaints otherwise. 09/02 Slept okay when pain was controlled. Has some occasional nausea. Dressings intact. No headache fever chills vomiting chest pain stomach pain. Friend family and friends present in the room. 09/03 No issues overnight. Slept okay. Has not had a bowel movement. Pain controlled with pain regimen. Review of Systems: denies headache/fever/chills/vomiting/chest or abdominal pain/cough/d yspnea/diarrhea. Otherwise see above. - Constitutional Vitals: Vital Signs Temp Pulse Resp BP Pulse Ox 97.8 F 96 H 16 128/71 98 09/03/18 04:42 09/03/18 07:03 09/03/18 04:42 09/03/18 04:42 09/03/18 04:42 Period Temp Pulse Resp BP Sys/Chandra Pulse Ox Last 24 Hr 97.6 F-99.4 F 86-108 16-16 107-128/58-71 93-98 Intake and Output 09/02/18 09/03/18 09/03/18 21:59 05:59 13:59 Intake Total 1050 570 50 Output Total 300 Balance 750 570 50 Weight 97.522 kg Intake & Output: Intake & Output 09/02/18 09/03/18 09/03/18 21:59 05:59 13:59 Intake Total 1050 570 50 Output Total 300 Balance 750 570 50 Weight 97.522 kg Intake: IV 1050 300 50 Zosyn 3.375 gm In Dextrose 5% 50 50 50 in Water 50 ml @ 100 mls/hr IV Q6H [facility] Rx#:[id number] Vancomycin 1,000 mg In Sodium 250 Chloride 0.9% 250 ml @ 250 mls/ hr IV Q12H [facility] Rx#:[id number] Oral 270 Output: Void Amount 300 Other: Meal Dinner Percent of Meal Consumed 50% Feeding Ability Independent Urine Appearance Clear Urine Color Bright Yellow Urine Odor Normal # Voids 1 1 Exam: General: Alert, Awake, No acute Distress Eyes/N/T: EOMI, Head/Neck: neck supple, CV: RRR, No murmurs, Pulm: Clear b/l, no wheezing/rhonchi/rales Abd: soft, nontender, +BS x4 Ext: Multiple lacerations, 20+ primarily to the upper extremities but also to the lower extremities, dressings intact to all extremities Neuro: Alert, no focal deficits, moves all extremities, Skin: warm/dry Medical - PN: Obj Da - Labs CBC & Chem 7: 09/03/18 05:08 09/03/18 05:08 Labs: Abnormal Lab Results 09/03/18 09/03/18 09/02/18 05:08 05:08 08:15 WBC 18.1 H 26.5 H RBC 3.06 L 3.64 L Hgb 8.7 L 10.5 L Hct 26.8 L 31.9 L RDW 15.6 H 15.4 H Gran % 83.2 H Lymph % (Auto) 11.4 L Gran # 12.0 H 22.0 H Sully # (Auto) 1.6 H 1.4 H Sodium Carbon Dioxide Anion Gap Glucose 106 H Calcium 7.5 L Phosphorus Total Protein 5.4 L Albumin 3.1 L 09/02/18 04:56 WBC RBC Hgb Hct RDW Gran % Lymph % (Auto) Gran # Sully # (Auto) Sodium 130 L Carbon Dioxide 16 L Anion Gap 17.0 H Glucose 107 H Calcium 8.2 L Phosphorus 4.8 H Total Protein Albumin Meds: Medications Acetaminophen (Tylenol) 650 mg PO Q6HP PRN PRN Reason: PAIN/FEVER > 101 Hydrocodone Bitart/Acetaminophen ([place] 5/325mg) 1 - 2 tab PO Q4HP PRN PRN Reason: PAIN LEVEL 3-6 Last Admin: 09/03/18 04:43 Dose: 2 tab Documented by: Acyclovir (Zovirax) 400 mg PO DAILYP PRN; Protocol PRN Reason: Cold Sores Albuterol Sulfate (Ventolin) 2 puff INH Q4-6HP PRN PRN Reason: Shortness Of Breath Bacitracin (Bacitracin Topical Oint) 1 dose TOPICAL UD PRN PRN Reason: DRESSING CHANGES Cyclobenzaprine HCl (Flexeril) 10 mg PO DAILYP PRN PRN Reason: PAIN IN NECK Hydrochlorothiazide (Oretic) 25 mg PO DAILY [facility] Last Admin: 09/02/18 11:51 Dose: 25 mg Documented by: Piperacillin Sod/Tazobactam (Sod 3.375 gm/ Dextrose) 50 mls @ 100 mls/hr IV Q6H [facility]; Protocol Last Infusion: 09/03/18 06:38 Dose: Infused Documented by: Vancomycin HCl 1,000 mg/ (Sodium Chloride) 250 mls @ 250 mls/hr IV Q12H [facility] Last Infusion: 09/02/18 22:01 Dose: Infused Documented by: Levothyroxine Sodium (Synthroid) 125 mcg PO QAMAC [facility] Last Admin: 09/03/18 06:55 Dose: 125 mcg Documented by: Losartan Potassium (Cozaar) 100 mg PO DAILY [facility] Last Admin: 09/02/18 11:51 Dose: 100 mg Documented by: Morphine Sulfate (Morphine) 2 mg IV Q4HP PRN PRN Reason: PAIN LEVEL > 6 Last Admin: 09/02/18 18:52 Dose: 2 mg Documented by: Beclomethasone Dipropionate [Qvar] 1 Puff Inh 1 dose INH DAILY [facility] Last Admin: 09/02/18 09:11 Dose: Not Given Documented by: Sodium Chloride (Saline Flush) 10 ml IV Q8 [facility] Last Admin: 09/03/18 05:50 Dose: Not Given Documented by: Vancomycin HCl (Vancomycin Per Pharmacy) 1 order IV UD [facility]; Protocol Medical - PN: A/P - Time Spent With Patient Total time spent is greater than 50% in coordination of care (as documented) at patient's floor/unit and/or counseling patient: - Narrative A/P Narrative: A: *Lacerations, Multiple to b/l UE's & LE's: 2/2 to attack by raccoon -leukocytosis improving *COPD: *HTN: *Hypothyroidism: *Hyponatremia: resolved *constipation P: -Wound care -Vanco/Zosyn; BC pending -ID consult -Imaging per ID -Dr. Major consulted -Rabies vaccine per ID -bowel regimen -ppx: [facility] Medical - PN: Qual - VTE Deep Vein Thrombosis/Pulmonary Embolism Present on Admission: No
[2018-09-03] MEDS ORDERED: POLYETHYLENE GLYCOL 3350 17 GM PACKET PO ONE (08:24)
[2018-09-03] MEDS ORDERED: POLYETHYLENE GLYCOL 3350 17 GM PACKET PO PRN (08:24)
[2018-09-03] MEDS ORDERED: SENNOSIDES 1 TABLET PO PRN (08:24)
[2018-09-03] MEDS: RABIES IMMUNE GLOBULIN 300 UNIT/2 ML VIAL SQ ONE (08:25)
[2018-09-03] MEDS ORDERED: IOPAMIDOL 150 ML BOTTLE IV ONE (09:16)
[2018-09-03] MEDS: DOCUSATE SODIUM 100 MG CAPSULE PO SCH ×2 (09:21→20:08)
[2018-09-03] MEDS: HYDROCHLOROTHIAZIDE 25 MG TABLET PO SCH (09:21)
[2018-09-03] MEDS: LOSARTAN 50 MG TABLET PO SCH (09:21)
[2018-09-03] MEDS: VANCOMYCIN 1,000 MG in 0.9 % SODIUM CHLORIDE 250 ML IV SCH ×2 (10:04→20:09)
[2018-09-03] MEDS: BECLOMETHASONE DIPROPIONATE INH SCH (10:27)
--- NOTE | 2018-09-03 10:29 | Cat Scan Report ---
CLINICAL INFORMATION: Raccoon bites TECHNIQUE: Axial images through the right lower extremity. 120 mL contrast material administered. Sagittal and coronal reformatted images COMPARISON: None. FINDINGS: No soft tissue fluid collection. No significant soft tissue gas. There is no radiopaque foreign body. Tibia and fibula are negative. No cortical disruption. No evidence for osteomyelitis. IMPRESSION: 1. Negative postcontrast CT scan of the right lower extremity. 2. No soft tissue gas or fluid collection. No foreign body Interpreted and Authenticated by: Mitch Dutta 09/03/18
--- NOTE | 2018-09-03 11:18 | Cat Scan Report ---
CLINICAL INFORMATION: Raccoon bites TECHNIQUE: Axial images through the left lower extremity. 120 mL intravenous contrast material injected. Sagittal and coronal reformatted images COMPARISON: None. FINDINGS: There is mild injection of subcutaneous fat in the posterior left calf. This is nonspecific. Mild edema or cellulitis. There is no soft tissue mass. No focal fluid collection. There is no abscess. No soft tissue gas or radiopaque foreign body. Tibia and fibula are negative. No cortical disruption. No evidence for osteomyelitis. There is no fracture. IMPRESSION: 1. Mild density within the subcutaneous fat of the posterior left calf. 2. No soft tissue abscess. No soft tissue gas or foreign body. Interpreted and Authenticated by: Mitch Dutta 09/03/18
--- NOTE | 2018-09-03 11:25 | Cat Scan Report ---
CLINICAL INFORMATION: Raccoon bites TECHNIQUE: Axial images through the left forearm. 120 mL contrast material injected. Sagittal and coronal reformatted images COMPARISON: None. FINDINGS: There is soft tissue gas in the volar and radial aspects of the right forearm. Gas is localized to the subcutaneous fat. There is injection of the subcutaneous fat consistent with edema or cellulitis. There is mild edema or cellulitis along the ulna are dorsal aspects of the left forearm. No mature abscess identified. No foreign body Muscle bundles appear normal. No focal fluid collection. No evidence for abscess. Radius and ulna are negative. No cortical disruption. No periosteal new bone formation. No fracture. Left wrist is negative. No fracture. IMPRESSION: 1. Soft tissue gas within the subcutaneous fat. This is in the volar and radial forearm. 2. No osseous abnormality. 3. No focal fluid collection. No discrete abscess. No foreign body Interpreted and Authenticated by: Mitch Dutta 09/03/18
--- NOTE | 2018-09-03 11:33 | Cat Scan Report ---
CLINICAL INFORMATION: Raccoon bite TECHNIQUE: Axial images through the right forearm. 120 mL intravenous contrast material injected. Positioning was difficult as this patient has had recent shoulder surgery COMPARISON: None. FINDINGS: There are gas bubbles within the subcutaneous fat of the mid right forearm. This involves the volar surface. There are some deep gas bubbles within the muscle bundles of the volar surface of the right forearm. There is subcutaneous edema or cellulitis in the mid right forearm. No well-defined fluid collection. No mature abscess. There is no radiopaque foreign body. Radius and ulna are negative. No fracture. There are gas bubbles within the dorsal and radial subcutaneous fat of the mid right forearm. There is no focal fluid collection. There is no abscess. There are multiple gas bubbles within the soft tissues of the dorsum of the right hand. Dorsal to the metatarsals and gas bubbles are within muscle bundles. No focal fluid collection. No abscess or discrete mass. No radiopaque foreign body. Bony structures are negative. There is no cortical destruction or periosteal new bone formation. Vascular structures are normal. No evidence for vascular occlusion. No contrast extravasation or pseudoaneurysm. IMPRESSION: 1. Multiple soft tissue gas bubbles. 2. No soft tissue mass. No discrete mature abscess 3. Vascular structures appear normal. No occlusion. No pseudoaneurysm or contrast extravasation Interpreted and Authenticated by: Mitch Dutta 09/03/18
--- NOTE | 2018-09-03 13:20 | Infectious Disease Prog Note ---
Subjective Patient information: Note initiated : 09/03/18 at 1:12 pm Service Date, if different from initiated Date: [] Patient: Sheron Gregory 63 y/o F admitted on 09/02/18 for raccon bites and scratches. Chief Complaint: [] Interval history: Pt was resting in the bed. She expressed some pain in her wounds. Denied any fever, n/v, diarrhea. She underwent wound debridement and exploration yesterday with Dr. Major. Shared that we will know the results of raccoon brain biopsy tomorrow [if he wasn't shot in head]. Objective Objective Narrative: ao x 3, in nad no thrush chest cta s1 s2 normal bs ++ nttd the wounds of hands, forearm and legs are wrapped in dressing, and are painful. some soakage on the dressing - Vital Signs Vital signs: Vital Signs Temp Pulse Resp BP Pulse Ox 09/03/18 08:00 36.5 C 98 H 16 121/69 98 09/03/18 07:03 96 H 09/03/18 04:42 36.6 C 96 H 16 128/71 98 09/03/18 00:16 37.4 C H 103 H 16 107/58 96 09/02/18 20:48 101 H 16 93 09/02/18 19:34 36.7 C 108 H 16 108/68 96 09/02/18 16:00 36.4 C 101 H 16 125/70 93 Intake and Output 09/02/18 09/03/18 09/03/18 21:59 05:59 13:59 Intake Total 1050 570 170 Output Total 300 Balance 750 570 170 Intake: IV 1050 300 50 Zosyn 3.375 gm In Dextrose 5% 50 50 50 in Water 50 ml @ 100 mls/hr IV Q6H [facility] Rx#:[id number] Vancomycin 1,000 mg In Sodium 250 Chloride 0.9% 250 ml @ 250 mls/ hr IV Q12H [facility] Rx#:[id number] Oral 270 120 Output: Void Amount 300 Other: Meal Dinner Breakfast Percent of Meal Consumed 50% 50% Feeding Ability Independent Independent Urine Appearance Clear Clear Urine Color Bright Yellow Bright Yellow Urine Odor Normal # Voids 1 1 Weight 97.522 kg Intake & Output: Intake & Output 09/02/18 09/03/18 09/03/18 21:59 05:59 13:59 Intake Total 1050 570 170 Output Total 300 Balance 750 570 170 Weight 97.522 kg Intake: IV 1050 300 50 Zosyn 3.375 gm In Dextrose 5% 50 50 50 in Water 50 ml @ 100 mls/hr IV Q6H [facility] Rx#:[id number] Vancomycin 1,000 mg In Sodium 250 Chloride 0.9% 250 ml @ 250 mls/ hr IV Q12H [facility] Rx#:[id number] Oral 270 120 Output: Void Amount 300 Other: Meal Dinner Breakfast Percent of Meal Consumed 50% 50% Feeding Ability Independent Independent Urine Appearance Clear Clear Urine Color Bright Yellow Bright Yellow Urine Odor Normal # Voids 1 1 - Lab 09/03/18 05:08 09/03/18 05:08 Most recent lab results Calcium 7.5 mg/dl (8.6-10.4) L 09/03/18 05:08 Phosphorus 3.4 mg/dL (2.7-4.5) 09/03/18 05:08 Magnesium 1.9 mg/dL (1.6-2.5) 09/03/18 05:08 Medications Active Medications: Acetaminophen (Tylenol) 650 mg PO Q6HP PRN PRN Reason: PAIN/FEVER > 101 Hydrocodone Bitart/Acetaminophen ([place] 5/325mg) 1 - 2 tab PO Q4HP PRN PRN Reason: PAIN LEVEL 3-6 Last Admin: 09/03/18 09:18 Dose: 2 tab Documented by: [email or web address] Admin: 09/03/18 04:43 Dose: 2 tab Documented by: Admin: 09/03/18 00:17 Dose: 2 tab Documented by: Admin: 09/02/18 21:03 Dose: 2 tab Documented by: Admin: 09/02/18 17:00 Dose: 1 tab Documented by: Admin: 09/02/18 12:57 Dose: 2 tab Documented by: Admin: 09/02/18 09:08 Dose: 2 tab Documented by: Admin: 09/01/18 23:55 Dose: 2 tab Documented by: FAHAD Acyclovir (Zovirax) 400 mg PO DAILYP PRN; Protocol PRN Reason: Cold Sores Albuterol Sulfate (Ventolin) 2 puff INH Q4-6HP PRN PRN Reason: Shortness Of Breath Bacitracin (Bacitracin Topical Oint) 1 dose TOPICAL UD PRN PRN Reason: DRESSING CHANGES Cyclobenzaprine HCl (Flexeril) 10 mg PO DAILYP PRN PRN Reason: PAIN IN NECK Docusate Sodium (Colace) 100 mg PO BID [facility] Last Admin: 09/03/18 09:21 Dose: 100 mg Documented by: [email or web address] Hydrochlorothiazide (Oretic) 25 mg PO DAILY [facility] Last Admin: 09/03/18 09:21 Dose: 25 mg Documented by: [email or web address] Admin: 09/02/18 11:51 Dose: 25 mg Documented by: VIKA Piperacillin Sod/Tazobactam (Sod 3.375 gm/ Dextrose) 50 mls @ 100 mls/hr IV Q6H [facility]; Protocol Last Admin: 09/03/18 11:35 Dose: 100 mls/hr Documented by: Infusion: 09/03/18 06:38 Dose: 0 mls/hr Documented by: Admin: 09/03/18 05:50 Dose: 100 mls/hr Documented by: Infusion: 09/03/18 00:47 Dose: 100 mls/hr Documented by: Admin: 09/03/18 00:17 Dose: 100 mls/hr Documented by: Infusion: 09/02/18 19:25 Dose: 100 mls/hr Documented by: Admin: 09/02/18 18:55 Dose: 100 mls/hr Documented by: Infusion: 09/02/18 12:47 Dose: 100 mls/hr Documented by: Admin: 09/02/18 11:52 Dose: 100 mls/hr Documented by: Infusion: 09/02/18 06:37 Dose: 100 mls/hr Documented by: Admin: 09/02/18 06:08 Dose: Not Given Documented by: FAHAD Non-Admin Reason: see other charting Admin: 09/02/18 06:07 Dose: 100 mls/hr Documented by: Admin: 09/02/18 01:00 Dose: Not Given Documented by: FAHAD Non-Admin Reason: see ER charting Vancomycin HCl 1,000 mg/ (Sodium Chloride) 250 mls @ 250 mls/hr IV Q12H [facility] Last Admin: 09/03/18 10:04 Dose: 250 mls/hr Documented by: Infusion: 09/02/18 22:01 Dose: 0 mls/hr Documented by: Admin: 09/02/18 21:01 Dose: 250 mls/hr Documented by: Infusion: 09/02/18 12:45 Dose: 250 mls/hr Documented by: Admin: 09/02/18 09:10 Dose: 250 mls/hr Documented by: VIKA Levothyroxine Sodium (Synthroid) 125 mcg PO QAMAC [facility] Last Admin: 09/03/18 06:55 Dose: 125 mcg Documented by: Admin: 09/02/18 11:51 Dose: 125 mcg Documented by: VIKA Losartan Potassium (Cozaar) 100 mg PO DAILY [facility] Last Admin: 09/03/18 09:21 Dose: 100 mg Documented by: [email or web address] Admin: 09/02/18 11:51 Dose: 100 mg Documented by: VIKA Morphine Sulfate (Morphine) 2 mg IV Q4HP PRN PRN Reason: PAIN LEVEL > 6 Last Admin: 09/02/18 18:52 Dose: 2 mg Documented by: [email or web address] Admin: 09/02/18 01:24 Dose: 2 mg Documented by: FAHAD Beclomethasone Dipropionate [Qvar] 1 Puff Inh 1 dose INH DAILY [facility] Last Admin: 09/03/18 10:27 Dose: Not Given Documented by: OLGA Non-Admin Reason: Unavailable Admin: 09/02/18 09:11 Dose: Not Given Documented by: VIKA Non-Admin Reason: NOT AVAILABLE PT TAKES prn Polyethylene Glycol (Miralax) 17 gm PO DAILYP PRN PRN Reason: Constipation Rabies Vaccine Human Diploid Cell (Rabies Vaccine) 2.5 unit IM ONCE ONE Stop: 09/04/18 10:01 Senna (Senokot) 1 tab PO HSP PRN PRN Reason: Constipation Sodium Chloride (Saline Flush) 10 ml IV Q8 [facility] Last Admin: 09/03/18 05:50 Dose: Not Given Documented by: FAHAD Non-Admin Reason: Continuous IV Admin: 09/02/18 21:01 Dose: Not Given Documented by: FAHAD Non-Admin Reason: Continuous IV Admin: 09/02/18 13:53 Dose: Not Given Documented by: VIKA Non-Admin Reason: Bag Still Infusing Admin: 09/02/18 06:07 Dose: Not Given Documented by: FAHAD Non-Admin Reason: Continuous IV Vancomycin HCl (Vancomycin Per Pharmacy) 1 order IV UD [facility]; Protocol Assessment and Plan - Narrative A/P Narrative: A: 1. Multiple bite wounds of upper and lower extremities from an unprovoked raccoon bite on 09/02/18 - Following concerns about bite wounds: a. multiple bite wounds (about 25) make it difficult for administration of HRIG in each single wound as the amount calculated after weight based dosing was 10 ml. In this case it was given in the wounds which were closer to head and deeper (stage 3 per WHO) b. many of the wounds in hands and fingers are close to tendon sheaths and raise concerns for introduction of bacteria into muscle and bones, with possibility of tenosynovitis and osteomyelitis - CT based imaging does not suggest osteomyelitis in any of the wounds, positive for soft tissue gas with edema and cellulitis in hands - will know brain biopsy results from raccoon tomorrow 2. No concerns for sepsis at this time Recommendations: - Continue IV Vancomycin per pharmacy assisted dosing. Vanc levels low at 8.6, so dose could be increased - Continue IV Zosyn 3.375 gm q6 hrs - await results from 2 sets of blood Cx - continue further wound care per Dr. Major (plastic surgery) - Continue rabies post-exposure prophylaxis on following dates: day 3 09/04/18 day 7 09/08/18 day 14 09/15/18 day 28 09/29/18 - will switch to highly bioavailable oral therapy at discharge. will follow Davion Santos MD Infectious diseases
--- NOTE | 2018-09-03 23:45 | Consultation ---
DATE OF CONSULTATION: 09/03/2018 REASON FOR ADMISSION: Mrs. Gregory is seen in followup where I had them washed out and closed most of her wounds, especially the larger ones. I followed up with her today. I was mostly concerned of the left index finger which I was concerned about tenosynovitis and with the remote possibility of joint involvement. She states that she is feeling quite a bit better today. PHYSICAL EXAMINATION: VITAL SIGNS: Stable. Her temperature is 99.1. EXTREMITIES: Examination limited to just the very distal portion of her extremities, demonstrates much improved movement of her digits. Her left index finger, she states it is a little stiffer, but there is much less pain with attempted movement. The dorsal incision is clean and dry. IMPRESSION: Slow, but steady progress with respect to her wounds. I told the patient that it would be good for her to get into the shower, get her incisions wet, washed off with soap and water, and then have the nurses re-wrap the wounds covering incisions and puncture wounds with bacitracin. I will continue to follow her up either tomorrow or the next day; but certainly if she is ready to discharge, I will plan to see her back outpatient. I told her that it takes about 7 to 10 days, but usually closer to a week, to see whether or not she may develop an infection of the wounds. We will keep a close eye on them. Certainly continue antibiotics as an outpatient and showering up the wounds and getting the moist heat to help with improving the local circulation would be to her advantage. I plan to see her back tomorrow if not done in the next day or so. JOSÉ MANUEL:in Job ID: [id number] Doc ID: [id number] Jason Moreno DO
[2018-09-04] MEDS: PIPERACILLIN SODIUM/TAZOBACTAM 3.375 GM in DEXTROSE 5% IN WATER 50 ML IV SCH ×2 (05:16→11:55)
[2018-09-04] MEDS: HYDROcodone/APAP 5/325MG TABLET PO PRN ×3 (05:17→13:55)
[2018-09-04] MEDS: 0.9 % SODIUM CHLORIDE 10 ML SYRINGE IV SCH ×2 (05:19→13:55)
[2018-09-04 06:54] LABS: Basophils # (Auto) 0.1 K/mcL (0.0-0.3); Basophils % (Auto) 0.4 % (0.0-2.0); Eosinophils # (Auto) 0.3 K/mcL (0.0-0.7); Eosinophils % (Auto) 2.2 % (0.0-7.0); Granulocytes % (Auto) 59.6 % (38.0-78.0); Lymphocytes % (Auto) 29.7 % (15.5-49.0); Mean Cell Volume 88.4 fL (80.0-100.0); Mean Corpuscular HGB Conc 31.9 g/dL (31.0-36.0); Monocytes # (Auto) 1.1 K/mcL (0.1-0.9); Monocytes % (Auto) 8.1 % (1.0-12.0); Platelet Count 303 K/mcL (140-440); RBC 2.91 M/mcL (4.00-5.20); Red Cell Distribution Width 16.2 % (11.5-14.5)
[2018-09-04 07:19] LABS: Blood Urea Nitrogen 9 mg/dl (8-23)
--- NOTE | 2018-09-04 07:36 | Internal Med Progress Note ---
Medical - PN: Subj Patient information: Note initiated : 09/04/18 at 7:34 am Service Date, if different from initiated Date: [] Patient: Sheron Gregory a 63 y/o F admitted on 09/02/18 for raccon bites and scratches. Chief Complaint: [] Interval history: Ms. Gregory is a 63 year old F who presents to the ED after being attacked by raccoon. Patient states that she heard her dog barking outside in the back she went to the back and found a raccoon and the dog growling in the raccoon. She L that the dog to get in the house and the dog ran away. At that point the raccoon right after her and as she turned around run away the raccoon grabbed her leg. Patient fell down the ground and put her arms up to protect herself in the raccoon's started biting and calling her arms. Finally the raccoon to stopped and ran away. was able to kill the raccoon so we could taken to the health department. In the ED patient received tetanus shot as well as the rabies immunoglobulin. Case was discussed with Dr. Boyds RN and Dr. Santos who recommended admitting the patient for observation started on Vanco mycin Zosyn. Patient has pain to the laceration sites and some nausea but has no other complaints otherwise. 09/02 Slept okay when pain was controlled. Has some occasional nausea. Dressings intact. No headache fever chills vomiting chest pain stomach pain. Friend family and friends present in the room. 09/03 No issues overnight. Slept okay. Has not had a bowel movement. Pain controlled with pain regimen. 09/04 Mild headache. Has some nausea this morning. Slept well. And able to move her hands more today. Pain relatively controlled. Review of Systems: denies headache/fever/chills/vomiting/chest or abdominal pain/cough/dyspnea/diarrhea. Otherwise see above. - Constitutional Vitals: Vital Signs Temp Pulse Resp BP Pulse Ox 96.7 F L 94 H 20 93/66 94 09/04/18 07:24 09/04/18 07:24 09/04/18 07:24 09/04/18 07:24 09/04/18 07:24 Period Temp Pulse Resp BP Sys/Chandra Pulse Ox Last 24 Hr 96.7 F-99.1 F 90-101 16-22 93-134/57-80 94-100 Intake and Output 09/03/18 09/04/18 09/04/18 21:59 05:59 13:59 Intake Total 770 550 800 Balance 770 550 800 Weight 97.522 kg Intake & Output: Intake & Output 09/03/18 09/04/18 09/04/18 21:59 05:59 13:59 Intake Total 770 550 800 Balance 770 550 800 Weight 97.522 kg Intake: IV 50 300 Zosyn 3.375 gm In Dextrose 5% 50 50 in Water 50 ml @ 100 mls/hr IV Q6H [place] Rx#:[id number] Vancomycin 1,000 mg In Sodium 250 Chloride 0.9% 250 ml @ 250 mls/ hr IV Q12H [place] Rx#:[id number] Oral 720 250 800 Other: Meal Dinner Percent of Meal Consumed 100% Feeding Ability Independent Urine Color Pale # Voids 1 1 Exam: General: Alert, Awake, No acute Distress Eyes/N/T: EOMI, Head/Neck: neck supple, CV: RRR, No murmurs, Pulm: Clear b/l, no wheezing/rhonchi/rales Abd: soft, nontender, +BS x4 Ext: Dressings intact bilateral upper extremities as well as right lower extremity. Neuro: Alert, no focal deficits, moves all extremities, Skin: warm/dry Medical - PN: Obj Da - Labs CBC & Chem 7: 09/04/18 05:05 09/04/18 05:05 Labs: Abnormal Lab Results 09/04/18 09/04/18 09/03/18 05:05 05:05 05:08 WBC 13.6 H RBC 2.91 L Hgb 8.2 L Hct 25.7 L RDW 16.2 H Gran % Lymph % (Auto) Gran # 8.1 H [place] # (Auto) 1.1 H Sodium Carbon Dioxide Anion Gap Glucose 106 H Calcium 7.9 L 7.5 L Phosphorus Total Protein 5.4 L Albumin 3.1 L 09/03/18 09/02/18 09/02/18 05:08 08:15 04:56 WBC 18.1 H 26.5 H RBC 3.06 L 3.64 L Hgb 8.7 L 10.5 L Hct 26.8 L 31.9 L RDW 15.6 H 15.4 H Gran % 83.2 H Lymph % (Auto) 11.4 L Gran # 12.0 H 22.0 H [place] # (Auto) 1.6 H 1.4 H Sodium 130 L Carbon Dioxide 16 L Anion Gap 17.0 H Glucose 107 H Calcium 8.2 L Phosphorus 4.8 H Total Protein Albumin Meds: Medications Acetaminophen (Tylenol) 650 mg PO Q6HP PRN PRN Reason: PAIN/FEVER > 101 Hydrocodone Bitart/Acetaminophen ([place] 5/325mg) 1 - 2 tab PO Q4HP PRN PRN Reason: PAIN LEVEL 3-6 Last Admin: 09/04/18 05:17 Dose: 2 tab Documented by: Acyclovir (Zovirax) 400 mg PO DAILYP PRN; Protocol PRN Reason: Cold Sores Albuterol Sulfate (Ventolin) 2 puff INH Q4-6HP PRN PRN Reason: Shortness Of Breath Bacitracin (Bacitracin Topical Oint) 1 dose TOPICAL UD PRN PRN Reason: DRESSING CHANGES Cyclobenzaprine HCl (Flexeril) 10 mg PO DAILYP PRN PRN Reason: PAIN IN NECK Docusate Sodium (Colace) 100 mg PO BID [facility] Last Admin: 09/03/18 20:08 Dose: 100 mg Documented by: Hydrochlorothiazide (O[place]) 25 mg PO DAILY [facility] Last Admin: 09/03/18 09:21 Dose: 25 mg Documented by: Piperacillin Sod/Tazobactam (Sod 3.375 gm/ Dextrose) 50 mls @ 100 mls/hr IV Q6H [facility]; Protocol Last Admin: 09/04/18 05:16 Dose: 100 mls/hr Documented by: Vancomycin HCl 1,000 mg/ (Sodium Chloride) 250 mls @ 250 mls/hr IV Q12H [facility] Last Infusion: 09/04/18 05:19 Dose: Infused Documented by: Levothyroxine Sodium (Synthroid) 125 mcg PO QAMAC [facility] Last Admin: 09/03/18 06:55 Dose: 125 mcg Documented by: Losartan Potassium (Cozaar) 100 mg PO DAILY [facility] Last Admin: 09/03/18 09:21 Dose: 100 mg Documented by: Morphine Sulfate (Morphine) 2 mg IV Q4HP PRN PRN Reason: PAIN LEVEL > 6 Last Admin: 09/02/18 18:52 Dose: 2 mg Documented by: Beclomethasone Dipropionate [Qvar] 1 Puff Inh 1 dose INH DAILY [place] Last Admin: 09/03/18 10:27 Dose: Not Given Documented by: Polyethylene Glycol (Miralax) 17 gm PO DAILYP PRN PRN Reason: Constipation Rabies Vaccine Human Diploid Cell (Rabies Vaccine) 2.5 unit IM ONCE ONE Stop: 09/04/18 10:01 Rabies Vaccine Human Diploid Cell (Rabies Vaccine) 2.5 unit IM ONCE ONE Stop: 09/08/18 10:01 Senna (Senokot) 1 tab PO HSP PRN PRN Reason: Constipation Sodium Chloride (Saline Flush) 10 ml IV Q8 [place] Last Admin: 09/04/18 05:19 Dose: 10 ml Documented by: Vancomycin HCl (Vancomycin Per Pharmacy) 1 order IV UD [facility]; Protocol Medical - PN: A/P - Time Spent With Patient Total time spent is greater than 50% in coordination of care (as documented) at patient's floor/unit and/or counseling patient: - Narrative A/P Narrative: A: *Lacerations, Multiple to b/l UE's & LE's: 2/2 to attack by raccoon -leukocytosis improving *Anemia, acute blood loss: 2/2 above, dome dilutional component *COPD: *HTN: *Hypothyroidism: *Hyponatremia: resolved *constipation P: -Wound care -Vanco/zosyn; BC pending -ID consult -Dr. Major following -Rabies vaccine per ID -bowel regimen -ppx: [facility] Medical - PN: Qual - VTE Deep Vein Thrombosis/Pulmonary Embolism Present on Admission: No
[2018-09-04] MEDS ORDERED: PROCHLORPERAZINE 10 MG/2 ML VIAL IV PRN (07:42)
[2018-09-04] MEDS ORDERED: ONDANSETRON 4 MG/2 ML VIAL IV ONE (07:42)
[2018-09-04] MEDS ORDERED: CALCIUM CARBONATE 500 MG TAB.CHEW CHEWED PRN (07:43)
[2018-09-04] MEDS ORDERED: MAG HYDROX/AL HYDROX/SIMETH 30 ML ORAL.SUSP PO PRN (07:43)
[2018-09-04] MEDS: VANCOMYCIN 1,000 MG in 0.9 % SODIUM CHLORIDE 250 ML IV SCH (09:13)
[2018-09-04] MEDS: LEVOTHYROXINE 125 MCG TABLET PO SCH (09:13)
[2018-09-04] MEDS: DOCUSATE SODIUM 100 MG CAPSULE PO SCH (09:13)
[2018-09-04] MEDS: HYDROCHLOROTHIAZIDE 25 MG TABLET PO SCH (09:21)
[2018-09-04] MEDS: BECLOMETHASONE DIPROPIONATE INH SCH (09:21)
[2018-09-04] MEDS: LOSARTAN 50 MG TABLET PO SCH (09:21)
[2018-09-04] MEDS ORDERED: RABIES VACC, HUMAN DIPLOID/PF 2.5 UNIT VIAL IM ONE (10:00)
--- NOTE | 2018-09-04 14:14 | Discharge Summary ---
Medical - DS: Prov Patient information: Note initiated : 09/04/18 at 2:13 pm Service Date, if different from initiated Date: [] Patient: Sheron Gregory 63 y/o F admitted on 09/02/18 for raccon bites and scratches. Chief Complaint: [] Date of admission: 09/02/18 13:37 Discharge date: 09/05/18 Primary care physician: Sabrina Ozuna Consults: 09/01/18 Consult to Physician [CONS] Stat Comment: Consulting Provider: Camilo Moreno Reason For Exam: Physician to Consult Consult to Physician [CONS] Stat Comment: Consulting Provider: Davion Santos Reason For Exam: Physician to Consult 09/01/18 23:10 Consult to Physician [CONS] Routine Comment: Consulting Provider: Jason Major Reason For Exam: Physician to Consult 09/02/18 11:45 Consult to Physician [CONS] Routine Comment: Consulting Provider: Larry Torres Reason For Exam: Physician to Consult Medical - DS: Meds - Discharge Medications Prescriptions: Amoxicillin/Potassium Clav [Augmentin] 875 mg PO BIDCC #26 tab Bacitracin Topical Oint 1 dose TOPICAL UD PRN #1 tube PRN Reason: Dressing Changes Doxycycline Hyclate 100 mg PO BID #26 tablet.orl HYDROcodone/APAP 5/325MG [[place] 5-325Mg] 1 - 2 tab PO Q4HP PRN #40 tab PRN Reason: Pain Level >4 Active and Home Medications: Home Medications acyclovir 400 mg tablet 400 mg PO DAILYP PRN tab 10/17/17 [History Confirmed 09/01/18 Last Taken 09/01/18] albuterol sulfate HFA 90 mcg/actuation aerosol inhaler 2 puff INHALATION Q4-6HP PRN g 10/17/17 [History Confirmed 09/01/18 Last Taken 09/01/18] beclomethasone dipropionate 80 mcg/actuation aerosol inhaler 1 puff INHALATION DAILY g 10/17/17 [History Confirmed 09/01/18 Last Taken 09/01/18] cyclobenzaprine 10 mg tablet 10 mg PO DAILYP PRN tab 10/17/17 [History Confirmed 09/01/18 Last Taken 09/01/18] doxycycline hyclate 50 mg tablet 50 mg PO DAILYP PRN 10/17/17 [History Confirmed 09/01/18 Last Taken 09/01/18] levothyroxine 125 mcg tablet 125 mcg PO QAMAC 10/17/17 [History Confirmed 09/01/18 Last Taken 09/01/18] losartan 100 mg-hydrochlorothiazide 25 mg tablet 1 tab PO QDAY 10/17/17 [History Confirmed 09/01/18 Last Taken 09/01/18] Multivit,Ther Iron,Ca,FA & Min [Multivitamin W/Minerals] 1 tab PO DAILY 06/30/18 [History Confirmed 09/01/18 Last Taken 09/01/18] HYDROcodone/APAP 10/325MG [[place] 10-325Mg] 1 - 2 tab PO Q4HP PRN #75 tab [Rx Confirmed 09/01/18 Last Taken 09/01/18] Home Medications acyclovir 400 mg tablet 400 mg PO DAILYP PRN tab 10/17/17 [History Confirmed 09/01/18 Last Taken 09/01/18] albuterol sulfate HFA 90 mcg/actuation aerosol inhaler 2 puff INHALATION Q4-6HP PRN g 10/17/17 [History Confirmed 09/01/18 Last Taken 09/01/18] beclomethasone dipropionate 80 mcg/actuation aerosol inhaler 1 puff INHALATION DAILY g 10/17/17 [History Confirmed 09/01/18 Last Taken 09/01/18] cyclobenzaprine 10 mg tablet 10 mg PO DAILYP PRN tab 10/17/17 [History Confirmed 09/01/18 Last Taken 09/01/18] doxycycline hyclate 50 mg tablet 50 mg PO DAILYP PRN 10/17/17 [History Confirmed 09/01/18 Last Taken 09/01/18] levothyroxine 125 mcg tablet 125 mcg PO QAMAC 10/17/17 [History Confirmed 09/01/18 Last Taken 09/01/18] losartan 100 mg-hydrochlorothiazide 25 mg tablet 1 tab PO QDAY 10/17/17 [History Confirmed 09/01/18 Last Taken 09/01/18] Multivit,Ther Iron,Ca,FA & Min [Multivitamin W/Minerals] 1 tab PO DAILY 06/30/18 [History Confirmed 09/01/18 Last Taken 09/01/18] Amoxicillin/Potassium Clav [Augmentin] 875 mg PO BIDCC #26 tab 09/04/18 [Rx Last Taken Unknown] Bacitracin Topical Oint 1 dose TOPICAL UD PRN #1 tube 09/04/18 [Rx Last Taken Unknown] Doxycycline Hyclate 100 mg PO BID #26 tablet.orl 09/04/18 [Rx Last Taken Unknown] HYDROcodone/APAP 5/325MG [[place] 5-325Mg] 1 - 2 tab PO Q4HP PRN #40 tab 09/04/18 [Rx Last Taken Unknown] Medical - DS: Hosp Hospital course: Ms. Gregory is a 63 year old F who presents to the ED after being attacked by raccoon. Patient states that she heard her dog barking outside in the back she went to the back and found a raccoon and the dog growling in the raccoon. She L that the dog to get in the house and the dog ran away. At that point the raccoon right after her and as she turned around run away the raccoon grabbed her leg. Patient fell down the ground and put her arms up to protect herself in the ra ccoon's started biting and calling her arms. Finally the raccoon to stopped and ran away. was able to kill the raccoon so we could taken to the health department. In the ED patient received tetanus shot as well as the rabies immunoglobulin. Case was discussed with Dr. Boyds RN and Dr. Santos who recommended admitting the patient for observation started on Vanco mycin Zosyn. Patient has pain to the laceration sites and some nausea but has no other complaints otherwise. 09/02 Slept okay when pain was controlled. Has some occasional nausea. Dressings intact. No headache fever chills vomiting chest pain stomach pain. Friend family and friends present in the room. 09/03 No issues overnight. Slept okay. Has not had a bowel movement. Pain controlled with pain regimen. 09/04 Mild headache. Has some nausea this morning. Slept well. And able to move her hands more today. Pain relatively controlled. Discharge diagnosis: Animal atack multiple significant lacerations upper and lower extremities - Time Spent with Patient Total time spent providing and/or coordinating discharge services: Greater than 30 minutes Medical - DS: Exam - Constitutional Vitals: Vital Signs Temp Pulse Resp BP BP Pulse Ox 09/04/18 12:00 98.0 F 92 H 20 99/57 96 09/04/18 09:24 107/58 09/04/18 07:24 96.7 F L 94 H 20 93/66 94 09/04/18 04:50 98.6 F 97 H 20 115/68 96 09/04/18 00:00 99.1 F H 98 H 22 109/57 96 09/03/18 19:11 99.1 F H 101 H 22 104/64 100 09/03/18 16:00 98.2 F 90 16 134/80 98 Intake and Output 09/04/18 09/04/18 09/04/18 05:59 13:59 21:59 Intake Total 600 1140 Output Total 900 Balance 600 240 Intake: IV 350 Zosyn 3.375 gm In Dextrose 5% 100 in Water 50 ml @ 100 mls/hr IV Q6H [place] Rx#:[id number] Vancomycin 1,000 mg In Sodium 250 Chloride 0.9% 250 ml @ 250 mls/ hr IV Q12H [place] Rx#:[id number] Oral 250 1140 Output: Void Amount 900 Other: Meal Lunch Percent of Meal Consumed 100% Urine Color Pale Stool Size Small Stool Color Brown Stool Consistency Soft # Voids 1 1 # Bowel Movements 1 Medical - DS: Data Labs on day of discharge: Labs from last 24 hours 09/04/18 09/04/18 05:05 05:05 WBC 13.6 H RBC 2.91 L Hgb 8.2 L Hct 25.7 L MCV 88.4 MCH 28.2 MCHC 31.9 RDW 16.2 H Plt Count 303 MPV 8.0 Gran % 59.6 Lymph % (Auto) 29.7 [place] % (Auto) 8.1 Eos % (Auto) 2.2 Baso % (Auto) 0.4 Gran # 8.1 H Lymph # (Auto) 4.0 [place] # (Auto) 1.1 H Eos # (Auto) 0.3 Baso # (Auto) 0.1 Sodium 135 Potassium 4.0 Chloride 101 Carbon Dioxide 23 Anion Gap 11.0 BUN 9 Creatinine 0.6 GFR Calculation 97 Glucose 91 Calcium 7.9 L Preliminary micro results at discharge 09/02/18 21:22 Blood Culture - Preliminary Blood 09/02/18 21:33 Blood Culture - Preliminary Blood Medical - DS: A/P - Patient/Caregiver Discharge Instructions Activity: increase activity as tolerated Diet: Regular Diet Additional Instructions: Dressing changes per instructions from Dr. Major Prescriptions: Amoxicillin/Potassium Clav [Augmentin] 875 mg PO BIDCC #26 tab Bacitracin Topical Oint 1 dose TOPICAL UD PRN #1 tube PRN Reason: Dressing Changes Doxycycline Hyclate 100 mg PO BID #26 tablet.orl - Follow up Plan Follow up with: Davion Santos MD [Physician] - 09/17/18 9:00 am Sabrina Ozuna MD [Primary Care Provider] - Jason Major MD [Physician] - Larry Torres MD [Physician] - (follow up at wound clinic 1 week after discharge) Disposition: Home, Self-Care Prognosis: Fair Rehab Potential: Fair Medical - DS: Qual - VTE Deep Vein Thrombosis/Pulmonary Embolism Present on Admission: No
--- NOTE | 2018-09-04 15:51 | Infectious Disease Prog Note ---
Subjective Patient information: Note initiated : 09/04/18 at 3:45 pm Service Date, if different from initiated Date: [] Patient: Sheron Gregory 63 y/o F admitted on 09/02/18 for raccon bites and scratches. Chief Complaint: [] Interval history: Pt doing well. Reports nausea, but no vomiting, fever, chills, diarrhea. Endorses pain in her wounds. Shared the exciting news that raccoon who bit her tested negative for rabies. Counselled her that she could stop further rabies vaccine series, although continuing them for few more doses might protect her against future bites. Pt has some insurance issues and therefore reports that she might not be able to continue further vaccination. Discussed the plan to see her in ID clinic in next 10 days or so to check how her wounds are healing and if PO antibiotics (to be started today) might be stopped. 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 Pt able to move all fingers of her hand with minimal difficulty - Vital Signs Vital signs: Vital Signs Temp Pulse Resp BP BP Pulse Ox 09/04/18 15:38 37.1 C 92 H 14 112/60 97 09/04/18 12:00 36.7 C 92 H 20 99/57 96 09/04/18 09:24 107/58 09/04/18 07:24 35.9 C L 94 H 20 93/66 94 09/04/18 04:50 37.0 C 97 H 20 115/68 96 09/04/18 00:00 37.3 C H 98 H 22 109/57 96 09/03/18 19:11 37.3 C H 101 H 22 104/64 100 09/03/18 16:00 36.8 C 90 16 134/80 98 Intake and Output 09/04/18 09/04/18 09/04/18 05:59 13:59 21:59 Intake Total 600 1140 350 Output Total 900 Balance 600 240 350 Intake: IV 350 Zosyn 3.375 gm In Dextrose 5% 100 in Water 50 ml @ 100 mls/hr IV Q6H [facility] Rx#:[id number] Vancomycin 1,000 mg In Sodium 250 Chloride 0.9% 250 ml @ 250 mls/ hr IV Q12H [facility] Rx#:[id number] Oral 250 1140 350 Output: Void Amount 900 Other: Meal Lunch Percent of Meal Consumed 100% Urine Color Pale Stool Size Small Stool Color Brown Stool Consistency Soft # Voids 1 1 # Bowel Movements 1 Intake & Output: Intake & Output 09/04/18 09/04/18 09/04/18 05:59 13:59 21:59 Intake Total 600 1140 350 Output Total 900 Balance 600 240 350 Intake: IV 350 Zosyn 3.375 gm In Dextrose 5% 100 in Water 50 ml @ 100 mls/hr IV Q6H [facility] Rx#:[id number] Vancomycin 1,000 mg In Sodium 250 Chloride 0.9% 250 ml @ 250 mls/ hr IV Q12H [facility] Rx#:[id number] Oral 250 1140 350 Output: Void Amount 900 Other: Meal Lunch Percent of Meal Consumed 100% Urine Color Pale Stool Size Small Stool Color Brown Stool Consistency Soft # Voids 1 1 # Bowel Movements 1 - Lab 09/04/18 05:05 09/04/18 05:05 Most recent lab results Calcium 7.9 mg/dl (8.6-10.4) L 09/04/18 05:05 Phosphorus 3.4 mg/dL (2.7-4.5) 09/03/18 05:08 Magnesium 1.9 mg/dL (1.6-2.5) 09/03/18 05:08 Microbiology 09/02/18 21:22 Blood Blood Culture - Preliminary 09/02/18 21:33 Blood Blood Culture - Preliminary Medications Active Medications: Acetaminophen (Tylenol) 650 mg PO Q6HP PRN PRN Reason: PAIN/FEVER > 101 Hydrocodone Bitart/Acetaminophen ([place] 5/325mg) 1 - 2 tab PO Q4HP PRN PRN Reason: PAIN LEVEL 3-6 Last Admin: 09/04/18 13:55 Dose: 2 tab Documented by: Admin: 09/04/18 09:18 Dose: 2 tab Documented by: Admin: 09/04/18 05:17 Dose: 2 tab Documented by: Admin: 09/03/18 23:59 Dose: 2 tab Documented by: Admin: 09/03/18 20:08 Dose: 2 tab Documented by: Admin: 09/03/18 15:07 Dose: 2 tab Documented by: Admin: 09/03/18 13:12 Dose: 2 tab Documented by: Admin: 09/03/18 09:18 Dose: 2 tab Documented by: Admin: 09/03/18 04:43 Dose: 2 tab Documented by: Admin: 09/03/18 00:17 Dose: 2 tab Documented by: Admin: 09/02/18 21:03 Dose: 2 tab Documented by: Admin: 09/02/18 17:00 Dose: 1 tab Documented by: Admin: 09/02/18 12:57 Dose: 2 tab Documented by: Admin: 09/02/18 09:08 Dose: 2 tab Documented by: Admin: 09/01/18 23:55 Dose: 2 tab Documented by: FAHAD Acyclovir (Zovirax) 400 mg PO DAILYP PRN; Protocol PRN Reason: Cold Sores Al Hydrox/Mg Hydrox/Simethicone (Maalox) 30 ml PO Q4-6HP PRN PRN Reason: Dyspepsia Albuterol Sulfate (Ventolin) 2 puff INH Q4-6HP PRN PRN Reason: Shortness Of Breath Bacitracin (Bacitracin Topical Oint) 1 dose TOPICAL UD PRN PRN Reason: DRESSING CHANGES Last Admin: 09/04/18 12:11 Dose: 1 dose Documented by: [email or web address] Calcium Carbonate/Glycine (Tums) 500 mg CHEWED Q4HP PRN PRN Reason: Dyspepsia Cyclobenzaprine HCl (Flexeril) 10 mg PO DAILYP PRN PRN Reason: PAIN IN NECK Docusate Sodium (Colace) 100 mg PO BID [facility] Last Admin: 09/04/18 09:13 Dose: 100 mg Documented by: Admin: 09/03/18 20:08 Dose: 100 mg Documented by: Admin: 09/03/18 09:21 Dose: 100 mg Documented by: [email or web address] Hydrochlorothiazide (Oretic) 25 mg PO DAILY [facility] Last Admin: 09/04/18 09:21 Dose: 25 mg Documented by: [email or web address] Admin: 09/03/18 09:21 Dose: 25 mg Documented by: [email or web address] Admin: 09/02/18 11:51 Dose: 25 mg Documented by: VIKA Piperacillin Sod/Tazobactam (Sod 3.375 gm/ Dextrose) 50 mls @ 100 mls/hr IV Q6H [facility]; Protocol Last Admin: 09/04/18 11:55 Dose: 100 mls/hr Documented by: Infusion: 09/04/18 05:46 Dose: 100 mls/hr Documented by: Admin: 09/04/18 05:16 Dose: 100 mls/hr Documented by: Infusion: 09/04/18 01:55 Dose: 0 mls/hr Documented by: Admin: 09/03/18 23:59 Dose: 100 mls/hr Documented by: Infusion: 09/03/18 19:57 Dose: 0 mls/hr Documented by: Admin: 09/03/18 17:39 Dose: 100 mls/hr Documented by: Infusion: 09/03/18 12:05 Dose: 0 mls/hr Documented by: Admin: 09/03/18 11:35 Dose: 100 mls/hr Documented by: Infusion: 09/03/18 06:38 Dose: 0 mls/hr Documented by: Admin: 09/03/18 05:50 Dose: 100 mls/hr Documented by: Infusion: 09/03/18 00:47 Dose: 100 mls/hr Documented by: Admin: 09/03/18 00:17 Dose: 100 mls/hr Documented by: Infusion: 09/02/18 19:25 Dose: 100 mls/hr Documented by: Admin: 09/02/18 18:55 Dose: 100 mls/hr Documented by: Infusion: 09/02/18 12:47 Dose: 100 mls/hr Documented by: Admin: 09/02/18 11:52 Dose: 100 mls/hr Documented by: Infusion: 09/02/18 06:37 Dose: 100 mls/hr Documented by: Admin: 09/02/18 06:08 Dose: Not Given Documented by: FAHAD Non-Admin Reason: see other charting Admin: 09/02/18 06:07 Dose: 100 mls/hr Documented by: Admin: 09/02/18 01:00 Dose: Not Given Documented by: FAHAD Non-Admin Reason: see ER charting Vancomycin HCl 1,000 mg/ (Sodium Chloride) 250 mls @ 250 mls/hr IV Q12H [facility] Last Admin: 09/04/18 09:13 Dose: 250 mls/hr Documented by: Infusion: 09/04/18 05:19 Dose: 0 mls/hr Documented by: Admin: 09/03/18 20:09 Dose: 250 mls/hr Documented by: Infusion: 09/03/18 11:04 Dose: 0 mls/hr Documented by: Admin: 09/03/18 10:04 Dose: 250 mls/hr Documented by: Infusion: 09/02/18 22:01 Dose: 0 mls/hr Documented by: Admin: 09/02/18 21:01 Dose: 250 mls/hr Documented by: Infusion: 09/02/18 12:45 Dose: 250 mls/hr Documented by: Admin: 09/02/18 09:10 Dose: 250 mls/hr Documented by: IVKA Levothyroxine Sodium (Synthroid) 125 mcg PO QAMAC [facility] Last Admin: 09/04/18 09:13 Dose: 125 mcg Documented by: Admin: 09/03/18 06:55 Dose: 125 mcg Documented by: Admin: 09/02/18 11:51 Dose: 125 mcg Documented by: VIKA Losartan Potassium (Cozaar) 100 mg PO DAILY [facility] Last Admin: 09/04/18 09:21 Dose: 100 mg Documented by: Admin: 09/03/18 09:21 Dose: 100 mg Documented by: [email or web address] Admin: 09/02/18 11:51 Dose: 100 mg Documented by: VIKA Morphine Sulfate (Morphine) 2 mg IV Q4HP PRN PRN Reason: PAIN LEVEL > 6 Last Admin: 09/02/18 18:52 Dose: 2 mg Documented by: [email or web address] Admin: 09/02/18 01:24 Dose: 2 mg Documented by: FAHAD Beclomethasone Dipropionate [Qvar] 1 Puff Inh 1 dose INH DAILY [facility] Last Admin: 09/04/18 09:21 Dose: 1 dose Documented by: Admin: 09/03/18 10:27 Dose: Not Given Documented by: OLGA Non-Admin Reason: Unavailable Admin: 09/02/18 09:11 Dose: Not Given Documented by: VIKA Non-Admin Reason: NOT AVAILABLE PT TAKES prn Polyethylene Glycol (Miralax) 17 gm PO DAILYP PRN PRN Reason: Constipation Prochlorperazine (Compazine) 5 mg IV Q4-6HP PRN PRN Reason: Nausea And Vomiting Rabies Vaccine Human Diploid Cell (Rabies Vaccine) 2.5 unit IM ONCE ONE Stop: 09/08/18 10:01 Senna (Senokot) 1 tab PO HSP PRN PRN Reason: Constipation Sodium Chloride (Saline Flush) 10 ml IV Q8 [facility] Last Admin: 09/04/18 13:55 Dose: 10 ml Documented by: Admin: 09/04/18 05:19 Dose: 10 ml Documented by: Admin: 09/03/18 20:10 Dose: 10 ml Documented by: Admin: 09/03/18 17:09 Dose: 10 ml Documented by: Admin: 09/03/18 05:50 Dose: Not Given Documented by: FAHAD Non-Admin Reason: Continuous IV Admin: 09/02/18 21:01 Dose: Not Given Documented by: FAHAD Non-Admin Reason: Continuous IV Admin: 09/02/18 13:53 Dose: Not Given Documented by: VIKA Non-Shannan Reason: Bag Still Infusing Admin: 09/02/18 06:07 Dose: Not Given Documented by: FAHAD Non-Admin Reason: Continuous IV Vancomycin HCl (Vancomycin Per Pharmacy) 1 order IV UD [facility]; Protocol Assessment and Plan - Narrative A/P Narrative: A: 1. Multiple bite wounds of upper and lower extremities from an unprovoked raccoon bite on 09/02/18 - Raccoon brain tested negative for rabies - multiple bite wounds do raise concern for infection, and therefore it is imperative to continue antibiotics for few weeks - blood Cx NGTD 2. No concerns for sepsis at this time Recommendations: - Stop IV Vancomycin and IV Zosyn - continue further wound care per Dr. Major (plastic surgery) - Rabies post-exposure prophylaxis could be stopped. - In case pt is interested in continuing her rabies shots as pre-exposure prophylaxis for future bites: she could get it on following dates: day 7 09/08/18 day 21 09/22/18 This could be coordinated through her PCP or ID clinic [if she notifies us at [phone]]. Pt counselled that it is not a must, and could be done if she wishes. - start PO Augmentin 875 mg bid and oral Doxycycline 100 mg bid for 2 weeks (stop date 09/17/18) - ID clinic f/u appt made for 09/17/18 at 9 am Davion Santos MD Infectious diseases
[2018-09-04] MEDS ORDERED: AMOXICILLIN/POTASSIUM CLAV 875 MG TABLET PO SCH (17:30)
[2018-09-04] MEDS ORDERED: DOXYCYCLINE HYCLATE 100 MG TABLET.ORL PO SCH (21:00)
[2018-09-08] MEDS ORDERED: RABIES VACC, HUMAN DIPLOID/PF 2.5 UNIT VIAL IM ONE (10:00)
== END 2018-09-04 18:10 | disposition home or self-care (01) | DRG 982 ==
LOC: MEDSUR 19:39 → ED 19:39 → MEDSUR 23:07
PROVIDERS: ADMIT Internal Medicine; ATTEND Internal Medicine